=== PATIENT | male | born 1960 | race Caucasian/White ===

== ENCOUNTER 2020-10-25 08:46 | Outpatient (REF) | payer MEDICAID, SELFPAY | END 2020-10-25 08:47 | disposition home or self-care (01) | LOC: HO.LAB 08:46 | PROVIDERS: Visit Provider Internal Medicine | DX: Z20.828 Contact with and (suspected) exposure to other viral communicable diseases (principal) | CPT/HCPCS: C9803; U0003 ==

== ENCOUNTER 2021-11-29 11:14 | Outpatient (REF) | payer MEDICAID, SELFPAY ==
[2021-11-29 13:26] LABS: MANUAL DIFF FLAG NO
[2021-11-29 13:33] LABS: Basophils Percent Auto 0.4 % (0-2); Eosinophils Absolute Auto 0.4 X10*3/uL (0.0-0.4); Eosinophils Percent Auto 3.7 % (0-4); Hematocrit 41.7 % (42.0-52.0); Hemoglobin 13.5 g/dl (14.0-18.0); Imm Gran Abs Auto 0.06 X10*3/uL (0.00-0.03); Imm Gran Pct Auto 0.6 % (0.0-0.4); Lymphocytes Absolute Auto 2.8 X10*3/uL (1.2-4.9); Lymphocytes Percent Auto 29.3 % (20-40); Mean Corpuscular HGB Conc 32.4 g/dl (31.0-36.0); Mean Corpuscular Hemoglobin 29.9 pg (27.0-33.0); Mean Corpuscular Volume 92.5 fL (80.0-98.0); Mean Platelet Volume 10.3 fL (9.4-12.4); Monocytes Absolute Auto 0.9 X10*3/uL (0.1-1.2); Neutrophils Absolute Auto 5.4 x10*3/uL (2.0-8.3); Platelet Count 463 X10*3/uL (160-400); Red Blood Count 4.51 X10*6/uL (4.60-5.80); Red Cell Distribution Width 12.1 % (11.0-16.0); White Blood Count 9.5 X10*3/uL (4.8-10.8)
[2021-11-29 13:59] LABS: Alanine Aminotransferase 18 U/L (0-40); Albumin Level 3.5 g/dL (3.5-5.0); Alkaline Phosphatase 69 U/L (39-117); Anion Gap 12 (12-20); Aspartate Amino Transferase 13 U/L (5-37); Bilirubin Total 0.2 mg/dL (0.0-1.0); Blood Urea Nitrogen 11 mg/dL (9-16); Carbon Dioxide 29 mmol/L (22-29); Chloride 102 mmol/L (96-108); Cholesterol 151 mg/dL; Estimated Glomerular Filt Rate > 60; Glucose Random 85 mg/dL (60-115); HDL Cholesterol 36 mg/dL; LDL Cholesterol Calculated 87 mg/dl; Potassium 4.3 mmol/L (3.3-5.1); Sodium 139 mmol/L (135-145); Total Protein 6.6 g/dL (6.5-8.0); Triglycerides 143 mg/dL
[2021-11-29 14:18] LABS: Thyroid Stimulating Hormone 1.93 uIU/mL (0.32-4.0)
== END 2021-11-29 11:15 | disposition home or self-care (01) ==
LOC: HO.10HDL 11:14
PROVIDERS: Visit Provider Internal Medicine
DX: Z00.00 Encounter for general adult medical examination without abnormal findings (principal); E78.00 Pure hypercholesterolemia, unspecified; F32.9 Major depressive disorder, single episode, unspecified; I10 Essential (primary) hypertension; Z72.0 Tobacco use
CPT/HCPCS: 36415; 80053; 80061; 84443; 85025

== ENCOUNTER 2022-06-21 07:13 | Inpatient (IN) | payer MEDICAID, SELFPAY ==
[2022-06-21] VITALS (12 sets, daily range): BP systolic 112–149; BP diastolic 51–77; PULSE 65–99; RESP 13–24; TEMP 35.8–37.1; O2SAT 86–98; BMI 39.1
--- NOTE | 2022-06-21 | ECG_ITS ---
Test Reason : sob Blood Pressure : / mmHG Vent. Rate : 074 BPM Atrial Rate : 074 BPM P-R Int : 142 ms QRS Dur : 146 ms QT Int : 414 ms P-R-T Axes : 036 -15 012 degrees QTc Int : 459 ms Normal sinus rhythm Right bundle branch block Abnormal ECG No previous ECGs available Referred By: Generic ED Physician Electronically Signed By:Saulo Yu
--- NOTE | ~2022-06-21 | CT_ITS ---
EXAMINATION: CT ANGIOGRAM OF THE CHEST WITH CONTRAST (CT PULMONARY ANGIOGRAM FOR PE) CLINICAL INFORMATION: Reason for Exam sob/left sided chest pain COMPARISON: CXR from 06/21/2022. TECHNIQUE: Prior to contrast administration, noncontrast localization images were obtained. Subsequently, multidetector volumetric imaging was performed from the thoracic inlet to below the diaphragms following the administration of 65 mL Omnipaque 350 intravenous contrast. No contrast reaction reported. Sagittal, coronal, and MIP oblique sagittal reformatted images were obtained on the CT workstation, uploaded to PACS, and reviewed. This CT examination was performed using dose optimization techniques as appropriate, variously including the following: *Automated exposure control *Adjustment of mA and/or kV according to patient size (this includes techniques or standardized protocols for targeted exams where dose is matched to indication/reason for exam; i.e. extremities or head) *Use of iterative reconstruction technique DLP: Total exam dose-length product 358 mGy-cm FINDINGS: LUNGS AND PLEURA: Mild centrilobular and paraseptal emphysema of upper lobes. Also, there are reticular opacities of likely chronic mild fibrosis with traction bronchiectasis at the right apex. Several punctate calcified granulomas in the right upper lobe. Nonspecific 0.4 cm noncalcified nodule of the lateral right upper lobe (image 110, series 7). Small calcified nodule or lymph node along the minor fissure and 0.5 cm calcified granuloma the anterolateral left upper lobe. Other small calcified nodules are present, as well, including posteromedial left apex. No lung mass. No mucous plugging of bronchi. Peripheral opacity of what appears to represent mild atelectasis of the posterior left lower lobe. Trace left pleural effusion. QUALITY OF STUDY/CONTRAST BOLUS: The quality of the contrast bolus is borderline adequate. The main pulmonary artery has reached and attenuation of 200 Hounsfield units. CARDIOVASCULAR: The pulmonary arteries are normal in size. No evidence of embolic filling defects in the main, lobar or proximal segmental vessels. The evaluation of the peripheral arteries is partially limited by mild respiratory motion and the quality of the contrast bolus. Again, no emboli are identified. The heart size is normal. No pericardial effusion. There is mild atherosclerosis of the thoracic aorta without aneurysm or dissection. MEDIASTINUM/LOWER NECK: No mediastinal mass. The visualized inferior portion of the thyroid gland is normal. The esophagus is unremarkable. LYMPHATICS: No axillary or internal mammary lymphadenopathy. Mildly enlarged right paratracheal lymph nodes measure up to 1.2 cm short axis dimension. No subcarinal or hilar lymphadenopathy. Small calcified hilar lymph nodes from old granulomatous disease. UPPER ABDOMEN: No contrast reflux into the inferior vena cava. No acute findings in the visualized upper abdomen. Small, 0.6 cm cyst in the right lobe of the liver. There is atrophy and partial fatty replacement of the pancreas. A left renal cyst has a simple appearance but is only partially included in [id number]. No renal imaging follow-up recommended. OSSEOUS STRUCTURES: No acute or suspicious osseous abnormality. CT/CT angio chest PE protocol IMPRESSION: * The quality of the contrast bolus for the pulmonary arteries is borderline adequate. There is no CT imaging evidence of pulmonary embolism. * The opacity of the posterior left lower lobe has the appearance of atelectasis, although trace left pleural effusion is present. The possibility of an early onset pneumonia would also be considered, if in the proper clinical context. * Mild centrilobular and paraseptal emphysema. * Old granulomatous disease. Multiple small calcified pulmonary nodules are present. Also, findings include 0.4 cm noncalcified nodule of the lateral right upper lobe. Based on use of Fleischner Society guidelines, chest CT follow-up is not required in a low-risk patient and is considered optional at 12 months in a high risk patient. * Mild right paratracheal lymphadenopathy is of uncertain chronicity and significance. There are no comparison exams.
--- NOTE | ~2022-06-21 | XR_ITS ---
EXAMINATION: XR CHEST CLINICAL INFORMATION: Shortness of breath and left-sided chest pain COMPARISON: None TECHNIQUE: 2 views of the chest were obtained. FINDINGS: The heart and pulmonary vessels appear normal. No infiltrates or effusions are seen. There is a 5 mm rounded opacity seen in the left mid lung just above the left fifth anterior rib ends which may represent a small pulmonary nodule. No other lung masses are seen. XR/XR chest 2V IMPRESSION: No acute intrathoracic disease. Possible small 5 mm left upper lobe pulmonary nodule. CT is recommended for further evaluation.
[2022-06-21 08:32] LABS: MANUAL DIFF FLAG NO
[2022-06-21 08:34] LABS: Basophils Percent Auto 0.4 % (0-2); Eosinophils Absolute Auto 0.3 X10*3/uL (0.0-0.4); Eosinophils Percent Auto 3.2 % (0-4); Hematocrit 44.2 % (42.0-52.0); Hemoglobin 14.1 g/dl (14.0-18.0); Imm Gran Abs Auto 0.03 X10*3/uL (0.00-0.03); Imm Gran Pct Auto 0.4 % (0.0-0.4); Lymphocytes Absolute Auto 1.3 X10*3/uL (1.2-4.9); Lymphocytes Percent Auto 15.9 % (20-40); Mean Corpuscular HGB Conc 31.9 g/dl (31.0-36.0); Mean Corpuscular Hemoglobin 29.1 pg (27.0-33.0); Mean Corpuscular Volume 91.3 fL (80.0-98.0); Mean Platelet Volume 10.8 fL (9.4-12.4); Monocytes Absolute Auto 0.8 X10*3/uL (0.1-1.2); Monocytes Percent Auto 9.7 % (2-11); Neutrophils Absolute Auto 5.5 x10*3/uL (2.0-8.3); Neutrophils Percent Auto 70.4 % (45-73); Platelet Count 214 X10*3/uL (160-400); Red Blood Count 4.84 X10*6/uL (4.60-5.80); White Blood Count 7.9 X10*3/uL (4.8-10.8)
[2022-06-21 08:44] LABS: INTERNATIONAL NORM RATIO 0.9 (0.9-1.1); Prothrombin Time 10.7 SEC (10.0-13.1)
[2022-06-21 08:50] LABS: Alanine Aminotransferase 16 U/L (0-40); Albumin Level 3.8 g/dL (3.5-5.0); Alkaline Phosphatase 64 U/L (39-117); Anion Gap 11 (12-20); Aspartate Amino Transferase 15 U/L (5-37); Bilirubin Direct 0.3 mg/dL (0.0-0.5); Bilirubin Total 0.7 mg/dL (0.0-1.0); Blood Urea Nitrogen 14 mg/dL (9-16); Calcium 8.7 mg/dL (8.4-10.2); Carbon Dioxide 29 mmol/L (22-29); Chloride 104 mmol/L (96-108); Creatinine Clr Calc Pharmacy 122.8; Estimated Glomerular Filt Rate > 60; Glucose Random 155 mg/dL (60-115); Lipase 6 U/L (8-78); Potassium 4.5 mmol/L (3.3-5.1); Sodium 139 mmol/L (135-145); Total Protein 6.9 g/dL (6.5-8.0)
[2022-06-21 08:57] LABS: Troponin-I High Sensitivity 3.8 ng/L (<3.5-35.0)
[2022-06-21] MEDS: Magnesium Sulfate/H2O 2 GM/50 ML PIGGYBACK IV (08:59)
[2022-06-21] MEDS: methylPREDNISolone Sod Succ 125 MG/2 ML VIAL IVPUSH (08:59)
[2022-06-21 09:02] LABS: B Type Natriuretic Peptide 23 pg/mL (<100)
--- NOTE | 2022-06-21 09:07 | ED.CHESTPAIN ---
HPI - Chest Pain General Chief Complaint: Dyspnea Stated Complaint: diff breathing chest pain Time Seen by Provider: 06/21/22 08:04 Source: patient Mode of arrival: ambulatory Limitations: language barrier ( Amharic-speaking) History of Present Illness HPI narrative: 62-year-old male with a past medical history of asthma who has been intubated in the past many years ago, hyperlipidemia and hypertension presenting to the ED with complaints of left-sided chest pain that started around 06:00 when he woke up with associated shortness of breath. He reports that this pain does not radiate. He reports he has never had this pain in the past. He denies having an MS or stroke in the past. He denies being on any blood thinners. He reports that he has an albuterol updraft machine at home/ nebulizer although he did not have any albuterol although he does admit some wheezing. He denies a cough. He denies any recent falls or trauma, fevers, chills, dizziness, headaches, neck pain / stiffness, trouble swallowing or breathing, dyspnea on exertion, orthopnea, palpitations, paresthesias, cough, abdominal pain, back pain, radiation of the chest pain, lower extremity edema or calf tenderness, dysuria, recent travel or sick contacts, recent mobilization or surgery, history of cancer, history of DVT or PE, history of PVD disease that he is aware of, others with similar symptoms or any other symptoms complaints or concerns at this time. On arrival he was noted to be at 90% on room air therefore he was placed on 2-3 L of nasal can oxygen and now satting at 95-97% on room air. Reports he feels much better although still has that left-sided chest pain. MD complaint: chest pain Pertinent past history: other ( See above) Onset (ago): hour(s) ( since 06:00 this morning when he woke) Timing of current episode: constant and still present Onset: awoke with symptoms Pain location: left chest Pain radiation: none Severity: moderate Quality: tightness Relieving factors: nothing Exacerbating factors: nothing Associated symptoms: dyspnea Treatment prior to arrival: none Risk Factors Coronary artery disease risk factors: smoking history, hyperlipidemia and hypertension Thoracic aortic dissection risk factors: none Related Data Allergies Allergy/AdvReac Type Severity Reaction Status Date / Time No Known Allergies Allergy Unverified 08/18/20 15:11 Review of Systems Review of Systems: Constitutional : No Weight loss, No Fever, No Chills, No Night Sweats, No Fatigue, No Malaise ENT/Mouth : No Hearing loss, No Ear Pain, No Nasal Congestion, No Sinus Pain, No Hoarseness, No sore throat, No Rhinorrhea, No Swallowing Difficulty Eyes: No Eye Pain, No Swelling, No Redness, No Foreign Body, No Discharge, No Vision Changes Cardiovascular : + Chest Pain, + SOB, No Dyspnea on Exertion, No Orthopnea, No Edema, No Palpitations Respiratory : No Cough, No Sputum, + Wheezing, No Smoke Exposure, No Dyspnea Gastrointestinal : No Nausea, No Vomiting, No Diarrhea, No Constipation, No abdominal Pain, No Hematochezia, No Melena Genitourinary : no irregular bleeding, No Dysuria, No Urinary Frequency, No Hematuria, No Urinary Incontinence, No Urgency, No Flank Pain, No Urinary Flow Changes, No Hesitancy Musculoskeletal : No joint pain, No Myalgias, No Joint Swelling Skin : No Skin Lesions, No rash Neuro : No Weakness, No Numbness, No Paresthesias, No Loss of Consciousness, No Dizziness, No Headache Psych : No Anxiety/Panic, No Depression, No SI/HI/AH/VH, No Social Issues, Heme/Lymph: No Bruising, No Bleeding,No Lymphadenopathy Endocrine : No Polyuria, No Polydipsia, No Temperature Intolerance Yes all other systems are reviewed and are negative [facility] Past Medical History Attestation statement: The following information was validated with the patient. Source: old records reviewed and nursing notes reviewed Medical History Asthma High cholesterol HTN (hypertension) Social History Social History Alcohol intake: current Alcohol intake frequency: 3 or more drinks per day Alcohol type: beer Patient Tobacco Use Status: Current everyday Tobacco user Use of substances other than those prescribed or required for medical reasons: No Advance Directives: No Advance Directives Information Provided: Yes Physical Exam Vital Signs: Vital Signs: Last Vital Signs Temp 98.3 F 06/21/22 11:22 Pulse 99 06/21/22 11:44 Resp 20 06/21/22 11:44 BP 126/51 L 06/21/22 11:44 Pulse Ox 92 06/21/22 11:44 O2 Del Method 06/21/22 11:44 O2 Flow Rate 3 06/21/22 11:44 BMI result Body Mass Index 39.1 vital signs have been reviewed as normal and appeared to be correct. Blood pressure 149/77. Heart rate normal. Respiration rate 24. Temperature normal. Oxygen saturation 90% on 2-3L of [place] oxygen. Appearance: Alert. Oriented X3. In mild respiratory distress otherwise no other acute distress. Head: Normal external exam. Normocephalic. Atraumatic. Eyes: PERRLA. EOMI. Conjunctiva and sclera normal. Eyelids normal. ENT: EAC normal. TM's Normal. Pharynx normal. Uvula midline. Moist mucous membranes. No lesions/ulcerations or masses noted on the tongue. Normal voice. No trismus noted. No drooling noted. No muffled voice noted. Neck: Normal inspection. Neck supple. FROM. No adenopathy. Thyroid Normal. No tracheal deviation noted. No crepitus is noted. No meningeal signs. No neck mass noted. No signs of trauma noted. CVS: Normal heart rate and rhythm. Heart sound normal. Pulses normal throughout. No murmurs/rales/gallops. Respiratory: Mild respiratory distress with decreased breath sounds with expiratory wheezing throughout. No rales / rhonchi noted. Chest is nontender. No signs of trauma. No crepitus is noted. No accessory muscle usage noted. no tracheal tugging or abdominal retractions noted. Abdomen: Soft and nontender. Bowel sounds normal in all 4 quadrants. No distention noted. No organomegaly noted. No visible injury noted. Back: No CVA tenderness. Full range of motion noted. Nontender. No signs of trauma. Patient neuro intact bilaterally and distally on all 4 extremities. Patient's reflexes intact bilaterally and distally on all 4 extremities. No rashes/lesion/induration/fluctuance or signs of infection noted. Skin: Skin warm and dry. Normal skin color. Normal skin turgor. No rashes/lesions/lacerations noted. Extremities: No lower extremity edema. No calf tenderness is noted. Extremities exhibit normal range of motion and nontender. Neuro: Oriented X 3. No motor deficit. No sensory deficit. Reflexes normal. Normal steady gait. No focal neuro deficits noted. CN's II-XII intact bilaterally? Vascular: + radial pulses/+ 2 distal pedal pulses/+2 dorsalis pedis b/l. Normal cap refill. No cyanosis noted to upper extremity nails and lower extremity toes nails. Course Course Course Narrative: 9am - 62-year-old male with a past medical history of asthma who has been intubated in the past many years ago, hyperlipidemia and hypertension presenting to the ED with complaints of left-sided chest pain that started around 06:00 when he woke up with associated shortness of breath. He reports that this pain does not radiate. He reports he has never had this pain in the past. He denies having an MS or stroke in the past. He reports that he has an albuterol updraft machine at home/ nebulizer although he did not have any albuterol although he does admit some wheezing. On arrival he was noted to be at 90% on room air therefore he was placed on 2-3 L of nasal can oxygen and now satting at 95-97% on room air. Reports he feels much better although still has that left-sided chest pain. Plan: Will obtain labs, EKG, chest x-ray. Provide an hour long breathing treatment, 125 mg of IV Solu-Medrol, 2 g of magnesium in 324 mg of aspirin and re-evaluate. Reevaluation(s) Reevaluation #1: - Labs reviewed and patient's anion gap 11. Random glucose 155. Troponin 3.8 therefore will repeat repeated in 3 hours. BNP 23. Otherwise all other labs are within normal limits. Patient negative for COVID. - Chest x-ray revealed possible small 5 mm left upper lobe pulmonary nodule and they are recommending a CT for further evaluation. - Due to patient requiring nasal cannula oxygen and not having history of this and chest x-ray reporting left upper lobe pulmonary nodule will obtain CT scan with contrast for possible PE or any other acute processes and re-evaluate. Time: 10:25 Reevaluation #2: - CTA of chest for PE negative for PE revealed possible opacity in the left lower lobe to represent pneumonia versus atelectasis and he also has a left pleural effusion. He has Mild centrilobular and paraseptal emphysema and multiple pulmonary nodules an mild right paratracheal lymphadenopathy otherwise no other acute processes were noted - will obtain blood cultures/lactic acid provide a L of IV fluids and start 1 g of Rocephin for possible pneumonia although less likely. - therefore I had the PCT / tech ambulate the patient and patient's oxygen saturation dropped to 85% without any nasal cannula oxygen therefore at this time will admit patient for asthma exacerbation with bronchospasm / hypoxia with small pleural effusion possible pneumonia versus atelectasis. Patient understands agrees with this plan. Time: 12:39 [facility] - Chest Pain Medical Records Data Attestation: I reviewed the patient's medical records. Lab Data Attestation: I reviewed the patient's lab results. Result diagrams: 06/21/22 07:59 06/21/22 07:59 Labs: Lab Results 06/21/22 06/21/22 06/21/22 Range/Units 07:59 07:59 07:59 WBC 7.9 (4.8-10.8) X10*3/uL RBC 4.84 (4.60-5.80) X10*6/uL Hgb 14.1 (14.0-18.0) g/dl Hct 44.2 (42.0-52.0) % MCV 91.3 (80.0-98.0) fL MCH 29.1 (27.0-33.0) pg MCHC 31.9 (31.0-36.0) g/dl RDW 14.0 (11.0-16.0) % Plt Count 214 D (160-400) X10*3/uL MPV 10.8 (9.4-12.4) fL Immature Gran % (Auto) 0.4 (0.0-0.4) % Neut % (Auto) 70.4 (45-73) % Lymph % (Auto) 15.9 L (20-40) % [place] % (Auto) 9.7 (2-11) % Eos % (Auto) 3.2 (0-4) % Baso % (Auto) 0.4 (0-2) % Lymph # (Auto) 1.3 (1.2-4.9) X10*3/uL [place] # (Auto) 0.8 (0.1-1.2) X10*3/uL Eos # (Auto) 0.3 (0.0-0.4) X10*3/uL Baso # (Auto) 0.0 (0.0-0.2) X10*3/uL Abs Immat Gran (auto) 0.03 (0.00-0.03) X10*3/uL Absolute Neuts (auto) 5.5 (2.0-8.3) x10*3/uL Absolute Nucleated RBC 0.000 (0.0-0.012) X10*3/uL Nucleated RBC % (auto) 0.0 (0.0-0.2) /100WBC PT (10.0-13.1) SEC INR (0.9-1.1) Sodium 139 (135-145) mmol/L Potassium 4.5 (3.3-5.1) mmol/L Chloride 104 (96-108) mmol/L Carbon Dioxide 29 (22-29) mmol/L Anion Gap 11 L (12-20) BUN 14 (9-16) mg/dL Creatinine 0.75 (0.5-1.4) mg/dL Estim Creat Clear Calc 122.8 Estimated GFR > 60 Random Glucose 155 H D (60-115) mg/dL Calcium 8.7 (8.4-10.2) mg/dL Total Bilirubin 0.7 (0.0-1.0) mg/dL Direct Bilirubin 0.3 (0.0-0.5) mg/dL AST 15 (5-37) U/L ALT 16 (0-40) U/L Alkaline Phosphatase 64 (39-117) U/L Troponin I High Sens 3.8 (<3.5-35.0) ng/L B-Natriuretic Peptide (<100) pg/mL Total Protein 6.9 (6.5-8.0) g/dL Albumin 3.8 (3.5-5.0) g/dL Lipase 6 L (8-78) U/L COVID-19 ([facility]VIN) (Negative) COVID-19 Clin Com 06/21/22 06/21/22 06/21/22 Range/Units 08:29 08:29 09:18 WBC (4.8-10.8) X10*3/uL RBC (4.60-5.80) X10*6/uL Hgb (14.0-18.0) g/dl Hct (42.0-52.0) % MCV (80.0-98.0) fL MCH (27.0-33.0) pg MCHC (31.0-36.0) g/dl RDW (11.0-16.0) % Plt Count (160-400) X10*3/uL MPV (9.4-12.4) fL Immature Gran % (Auto) (0.0-0.4) % Neut % (Auto) (45-73) % Lymph % (Auto) (20-40) % [place] % (Auto) (2-11) % Eos % (Auto) (0-4) % Baso % (Auto) (0-2) % Lymph # (Auto) (1.2-4.9) X10*3/uL [place] # (Auto) (0.1-1.2) X10*3/uL Eos # (Auto) (0.0-0.4) X10*3/uL Baso # (Auto) (0.0-0.2) X10*3/uL Abs Immat Gran (auto) (0.00-0.03) X10*3/uL Absolute Neuts (auto) (2.0-8.3) x10*3/uL Absolute Nucleated RBC (0.0-0.012) X10*3/uL Nucleated RBC % (auto) (0.0-0.2) /100WBC PT 10.7 (10.0-13.1) SEC INR 0.9 (0.9-1.1) Sodium (135-145) mmol/L Potassium (3.3-5.1) mmol/L Chloride (96-108) mmol/L Carbon Dioxide (22-29) mmol/L Anion Gap (12-20) BUN (9-16) mg/dL Creatinine (0.5-1.4) mg/dL Estim Creat Clear Calc Estimated GFR Random Glucose (60-115) mg/dL Calcium (8.4-10.2) mg/dL Total Bilirubin (0.0-1.0) mg/dL Direct Bilirubin (0.0-0.5) mg/dL AST (5-37) U/L ALT (0-40) U/L Alkaline Phosphatase (39-117) U/L Troponin I High Sens (<3.5-35.0) ng/L B-Natriuretic Peptide 23 (<100) pg/mL Total Protein (6.5-8.0) g/dL Albumin (3.5-5.0) g/dL Lipase (8-78) U/L COVID-19 (KEVIN) Negative (Negative) COVID-19 Clin Com See Note 06/21/22 Range/Units 10:59 WBC (4.8-10.8) X10*3/uL RBC (4.60-5.80) X10*6/uL Hgb (14.0-18.0) g/dl Hct (42.0-52.0) % MCV (80.0-98.0) fL MCH (27.0-33.0) pg MCHC (31.0-36.0) g/dl RDW (11.0-16.0) % Plt Count (160-400) X10*3/uL MPV (9.4-12.4) fL Immature Gran % (Auto) (0.0-0.4) % Neut % (Auto) (45-73) % Lymph % (Auto) (20-40) % [place] % (Auto) (2-11) % Eos % (Auto) (0-4) % Baso % (Auto) (0-2) % Lymph # (Auto) (1.2-4.9) X10*3/uL [place] # (Auto) (0.1-1.2) X10*3/uL Eos # (Auto) (0.0-0.4) X10*3/uL Baso # (Auto) (0.0-0.2) X10*3/uL Abs Immat Gran (auto) (0.00-0.03) X10*3/uL Absolute Neuts (auto) (2.0-8.3) x10*3/uL Absolute Nucleated RBC (0.0-0.012) X10*3/uL Nucleated RBC % (auto) (0.0-0.2) /100WBC PT (10.0-13.1) SEC INR (0.9-1.1) Sodium (135-145) mmol/L Potassium (3.3-5.1) mmol/L Chloride (96-108) mmol/L Carbon Dioxide (22-29) mmol/L Anion Gap (12-20) BUN (9-16) mg/dL Creatinine (0.5-1.4) mg/dL Estim Creat Clear Calc Estimated GFR Random Glucose (60-115) mg/dL Calcium (8.4-10.2) mg/dL Total Bilirubin (0.0-1.0) mg/dL Direct Bilirubin (0.0-0.5) mg/dL AST (5-37) U/L ALT (0-40) U/L Alkaline Phosphatase (39-117) U/L Troponin I High Sens < 3.5 (<3.5-35.0) ng/L B-Natriuretic Peptide (<100) pg/mL Total Protein (6.5-8.0) g/dL Albumin (3.5-5.0) g/dL Lipase (8-78) U/L COVID-19 ([facility]) (Negative) COVID-19 Clin Com Imaging Data Chest x-ray: Attestation: I personally reviewed and interpreted this imaging study as follows: Radiologist's impression: FINDINGS: The heart and pulmonary vessels appear normal. No infiltrates or effusions are seen. There is a 5 mm rounded opacity seen in the left mid lung just above the left fifth anterior rib ends which may represent a small pulmonary nodule. No other lung masses are seen. XR/XR chest 2V IMPRESSION: No acute intrathoracic disease. Possible small 5 mm left upper lobe pulmonary nodule. CT is recommended for further evaluation. CTA of chest for PE: Attestation: I personally reviewed and interpreted this imaging study as follows: Radiologist's impression: FINDINGS: LUNGS AND PLEURA: Mild centrilobular and paraseptal emphysema of upper lobes. Also, there are reticular opacities of likely chronic mild fibrosis with traction bronchiectasis at the right apex. Several punctate calcified granulomas in the right upper lobe. Nonspecific 0.4 cm noncalcified nodule of the lateral right upper lobe (image 110, series 7). Small calcified nodule or lymph node along the minor fissure and 0.5 cm calcified granuloma the anterolateral left upper lobe. Other small calcified nodules are present, as well, including posteromedial left apex. No lung mass. No mucous plugging of bronchi. Peripheral opacity of what appears to represent mild atelectasis of the posterior left lower lobe. Trace left pleural effusion. QUALITY OF STUDY/CONTRAST BOLUS: The quality of the contrast bolus is borderline adequate. The main pulmonary artery has reached and attenuation of 200 Hounsfield units. CARDIOVASCULAR: The pulmonary arteries are normal in size. No evidence of embolic filling defects in the main, lobar or proximal segmental vessels. The evaluation of the peripheral arteries is partially limited by mild respiratory motion and the quality of the contrast bolus. Again, no emboli are identified. The heart size is normal. No pericardial effusion. There is mild atherosclerosis of the thoracic aorta without aneurysm or dissection. MEDIASTINUM/LOWER NECK: No mediastinal mass. The visualized inferior portion of the thyroid gland is normal. The esophagus is unremarkable. LYMPHATICS: No axillary or internal mammary lymphadenopathy. Mildly enlarged right paratracheal lymph nodes measure up to 1.2 cm short axis dimension. No subcarinal or hilar lymphadenopathy. Small calcified hilar lymph nodes from old granulomatous disease. UPPER ABDOMEN: No contrast reflux into the inferior vena cava. No acute findings in the visualized upper abdomen. Small, 0.6 cm cyst in the right lobe of the liver. There is atrophy and partial fatty replacement of the pancreas. A left renal cyst has a simple appearance but is only partially included in [id number]. No renal imaging follow-up recommended. OSSEOUS STRUCTURES: No acute or suspicious osseous abnormality.? CT/CT angio chest PE protocol IMPRESSION: *? The quality of the contrast bolus for the pulmonary arteries is borderline adequate. There is no CT imaging evidence of pulmonary embolism. *? The opacity of the posterior left lower lobe has the appearance of atelectasis, although trace left pleural effusion is present. The possibility of an early onset pneumonia would also be considered, if in the proper clinical context. *? Mild centrilobular and paraseptal emphysema. *? Old granulomatous disease. Multiple small calcified pulmonary nodules are present. Also, findings include 0.4 cm noncalcified nodule of the lateral right upper lobe. Based on use of Fleischner Society guidelines, chest CT follow-up is not required in a low-risk patient and is considered optional at 12 months in a high risk patient. *? Mild right paratracheal lymphadenopathy is of uncertain chronicity and significance. There are no comparison exams. ECG Data ECG #1: Attestation: I personally reviewed and interpreted this ECG as follows: ECG interpretation date: 06/21/22 ECG interpretation time: : Interpretation: Normal sinus rhythm with ventricular rate of 74 with a right bundle branch block and T-wave Inversions nonspecific no acute ischemic change are noted. no prior to compare to at this time. Critical Care Time Critical Care Time Critical Care Time: Yes Total Critical Care Time: 60 Attestation: I personally attest to this time spent taking care of the patient Discharge Plan Discharge Clinical Impression: Asthma with exacerbation, Hypoxia, Incidental pulmonary nodule, Pneumonia, Pleural effusion, Paraseptal emphysema, Paratracheal lymphadenopathy Patient Disposition: Still a Patient
[2022-06-21] MEDS: Albuterol Sulfate (0.083%) 2.5 MG/3 ML VIAL.NEB 10 MG INHALE (09:08)
[2022-06-21] MEDS: Aspirin 81 MG TAB.CHEW 324 MG PO (09:35)
[2022-06-21 09:46] LABS: COVID-19 Test Negative (Negative)
[2022-06-21] MEDS: iohexoL 350 MG/ML 100 ML INFUS..BTL IV (10:54)
[2022-06-21 11:27] LABS: Troponin-I High Sensitivity < 3.5 ng/L (<3.5-35.0)
--- NOTE | 2022-06-21 11:39 | PC.NURSE ---
pt is currently asleep but easily arousable, respirations even and unlabored ls still diminshed through after the breathing tx, denies chest pain , sating at 92-91% on 3l
--- NOTE | 2022-06-21 12:00 | PC.NURSE ---
ambulated the pt on room air with few steps pt's oxygen level dropped to 86% on room air
[2022-06-21] MEDS: cefTRIAXone sodium 1 GM in 0.9 % Sodium Chloride 50 ML IV (13:16)
--- NOTE | 2022-06-21 13:34 | PHA.MEDREC ---
Pharmacy Consult ? Medication Reconciliation Pharmacy has completed the medication reconciliation. Patient has not taken medications in a few days; states that he stopped taking atorvastatin because it made him constipated. SPOKE TO ESTEBAN BELL? ABOUT GETTING A METHADONE VERIFICATION FORM FOR PATIENT
--- NOTE | 2022-06-21 13:35 | P.HPHOSP_ITS ---
History of Present Illness Date of Service: 06/21/22 Chief Complaint: chest pain 62M presented with chest pain. Patient says he was feeling well day prior to presentation. He said on morning of admission he awoke due to left-sided severe 10/10 chest pain, nonradiating, worse on exertion, relieved by rest, lasted about 1-1/2 hours, has never had similar pain before, denies shortness of breath, denies fever, cough. He does note feeling ill 2 days prior to presentation, Though he is vague about his symptoms. in ED EKG showed rbbb, otherwise on ischemic, troponins negative, CTA was negative for PE, did have some left posterior atelectasis. he was noted to be 86% on room air. Review of Systems Review of Systems: Constitutional: Denies fever, denies Chills Eyes: denies blurry vision ENT: denies sore throat CVS:chest pain Respiratory: Denies dyspnea GI: no abdominal pain : denies dysuria MSK: denies neck pain Skin: denies rash Neuro: denies specific motor weakness Psych: denies suicidal ideation Endocrine: denies heat/cold intolerance Hematologic: denies easy bleeding Allergy: denies hives [facility] Medical History (Updated 06/21/22 @ 13:25 by Yaya Quinteros MD) Asthma COPD (chronic obstructive pulmonary disease) High cholesterol HTN (hypertension) Opiate dependence Family History (Updated 06/21/22 @ 13:25 by Yaya Quinteros MD) Father Pancreatic cancer Social History Alcohol intake: current Alcohol intake frequency: 3 or more drinks per day Alcohol type: beer Patient Tobacco Use Status: Current everyday Tobacco user Use of substances other than those prescribed or required for medical reasons: No Advance Directives: No Advance Directives Information Provided: Yes Meds Allergies Allergy/AdvReac Type Severity Reaction Status Date / Time No Known Allergies Allergy Unverified 08/18/20 15:11 Active Medications: Current Medications Acetaminophen (Acetaminophen 325 Mg Tablet) 650 mg PO Q6H PRN PRN Reason: Pain, Mild (Pain Scale 1-3) Albuterol/Ipratropium (Albuterol/Iprat 2.5/0.5mg 3 Ml Ampul.Neb) 3 ml INHALE RQ4H WHILE AWAKE TAMI Azithromycin (Azithromycin 500 Mg Tablet) 500 mg PO Q24H [facility] Enoxaparin Sodium (Enoxaparin Sodium 40 Mg/0.4 Ml Syringe) 40 mg SUBCUT Q24H [facility] Methylprednisolone Sodium Succinate (Methylprednisolone Sod Succ 40 Mg/Ml Vial) 40 mg IVPUSH Q12H [facility] Pharmacy Consult (Consult Rx Perform Med Rec) 1 each MISCELLANE ONCE PRN PRN Reason: Consult order Sodium Chloride (0.9 % Sodium Chloride Flush 3 Ml Syringe) 3 ml IVFLUSH QSHIFT [facility] Home Medications Medication Instructions Recorded Confirmed Last Taken Type atorvastatin 80 mg tablet 1 tab BEDTIME 06/21/22 06/21/22 Unknown History docusate sodium 100 mg capsule 1 cap PO BID PRN Constipation 06/21/22 06/21/22 Unknown History lisinopril 20 1 tab PO DAILY 06/21/22 06/21/22 Unknown History mg-hydrochlorothiazide 25 mg tablet methadone 10 mg/mL oral concentrate 55 mg PO DAILY 06/21/22 Unknown History Physical Exam Vital Signs and Narrative: Vital Signs: Last Vital Signs Temp 98.3 F 06/21/22 11:22 Pulse 99 06/21/22 11:44 Resp 20 06/21/22 11:44 BP 126/51 L 06/21/22 11:44 Pulse Ox 86 L 06/21/22 11:55 O2 Del Method 06/21/22 11:55 O2 Flow Rate 3 06/21/22 11:44 BMI result Body Mass Index 39.1 General: no acute distress HEENT: atraumatic Neck: normal to visual inspection CVS: S1, S2, RRR Resp: diminished with wheezing bilateral Chest: non tender GI: soft, non tender, non distended : no CVA tenderness Skin: no rashes Extremities: no edema Neuro: Oriented X3, grossly intact Psych: cooperative Results Labs CBC and Chem 7: 06/21/22 07:59 06/21/22 07:59 Labs: Laboratory Results - last 24 hr 06/21/22 06/21/22 06/21/22 07:59 07:59 07:59 MCV 91.3 MCH 29.1 MCHC 31.9 RDW 14.0 Plt Count 214 D MPV 10.8 Immature Gran % (Auto) 0.4 Neut % (Auto) 70.4 Lymph % (Auto) 15.9 L [place] % (Auto) 9.7 Eos % (Auto) 3.2 Baso % (Auto) 0.4 Lymph # (Auto) 1.3 [place] # (Auto) 0.8 Eos # (Auto) 0.3 Baso # (Auto) 0.0 Abs Immat Gran (auto) 0.03 Absolute Neuts (auto) 5.5 Absolute Nucleated RBC 0.000 Nucleated RBC % (auto) 0.0 PT INR Anion Gap 11 L Estim Creat Clear Calc 122.8 Estimated GFR > 60 Random Glucose 155 H D Calcium 8.7 Total Bilirubin 0.7 Direct Bilirubin 0.3 AST 15 ALT 16 Alkaline Phosphatase 64 Troponin I High Sens 3.8 B-Natriuretic Peptide Total Protein 6.9 Albumin 3.8 Lipase 6 L COVID-19 ([facility]) COVID-19 [employer] Com 06/21/22 06/21/22 06/21/22 08:29 08:29 09:18 MCV MCH MCHC RDW Plt Count MPV Immature Gran % (Auto) Neut % (Auto) Lymph % (Auto) [place] % (Auto) Eos % (Auto) Baso % (Auto) Lymph # (Auto) [place] # (Auto) Eos # (Auto) Baso # (Auto) Abs Immat Gran (auto) Absolute Neuts (auto) Absolute Nucleated RBC Nucleated RBC % (auto) PT 10.7 INR 0.9 Anion Gap Estim Creat Clear Calc Estimated GFR Random Glucose Calcium Total Bilirubin Direct Bilirubin AST ALT Alkaline Phosphatase Troponin I High Sens B-Natriuretic Peptide 23 Total Protein Albumin Lipase COVID-19 ([facility]) Negative COVID-19 Clin Com See Note 06/21/22 10:59 MCV MCH MCHC RDW Plt Count MPV Immature Gran % (Auto) Neut % (Auto) Lymph % (Auto) [place] % (Auto) Eos % (Auto) Baso % (Auto) Lymph # (Auto) [place] # (Auto) Eos # (Auto) Baso # (Auto) Abs Immat Gran (auto) Absolute Neuts (auto) Absolute Nucleated RBC Nucleated RBC % (auto) PT INR Anion Gap Estim Creat Clear Calc Estimated GFR Random Glucose Calcium Total Bilirubin Direct Bilirubin AST ALT Alkaline Phosphatase Troponin I High Sens < 3.5 B-Natriuretic Peptide Total Protein Albumin Lipase COVID-19 ([facility]) COVID-19 Clin Com Imaging Radiologist's Impressions: Impressions Chest X-Ray 06/21/22 08:28 IMPRESSION: No acute intrathoracic disease. Possible small 5 mm left upper lobe pulmonary nodule. CT is recommended for further evaluation. Chest CTA 06/21/22 11:02 IMPRESSION: * The quality of the contrast bolus for the pulmonary arteries is borderline adequate. There is no CT imaging evidence of pulmonary embolism. * The opacity of the posterior left lower lobe has the appearance of atelectasis, although trace left pleural effusion is present. The possibility of an early onset pneumonia would also be considered, if in the proper clinical context. * Mild centrilobular and paraseptal emphysema. * Old granulomatous disease. Multiple small calcified pulmonary nodules are present. Also, findings include 0.4 cm noncalcified nodule of the lateral right upper lobe. Based on use of Fleischner Society guidelines, chest CT follow-up is not required in a low-risk patient and is considered optional at 12 months in a high risk patient. * Mild right paratracheal lymphadenopathy is of uncertain chronicity and significance. There are no comparison exams. Assessment and Plan (1) COPD (chronic obstructive pulmonary disease): Status: Acute Plan 62M presented with sob Acute hypoxic respiratory failure secondary to COPD/ asthma with acute decompensation Solu-Medrol, bronchodilators, azithromycin chest pain troponin negative, check echo obesity weight loss recommended opiate dependence methadone hyperlipidemia statin hypertension lisinopril/hydrochlorothiazide DVT prophylaxis with Lovenox full code patient with significant hypoxia and risk factors including obesity and hypertension therefore likely require at least 2 midnights in the hospital. Quality Stroke Does the patient have a stroke diagnosis?: No VTE Prior VTE?: No VTE Risk Level:: Medical - moderate - high VTE Device Contraindication: Treatment Not Indicated VTE Drug Contraindication: N/A - Med Ordered
[2022-06-21] MEDS: Azithromycin 500 MG TABLET PO (14:46)
[2022-06-21] MEDS: Enoxaparin Sodium 40 MG/0.4 ML SYRINGE SUBCUT (14:46)
--- NOTE | 2022-06-21 15:38 | PC.NURSE ---
Sheba from case management attempted to verify the methadone dose but unfortunately they where already closed, Jorden did leave a message
--- NOTE | 2022-06-21 16:00 | CA_ITS ---
Transthoracic Echocardiogram Patient (Last, First, Middle): Hal Stein, Gender: Male Date of : 1960 Age: 62 Procedure Date: 06/21/2022 Procedure Type: Transthoracic Echocardiogram Location: ER Height: 170.18 cm Weight: 113.4 kg BSA: 2.22 m2 Heart Rate: bpm BP: 126 / 51 mmHg Regional Account Executive: WING Referring MD: Yaya Quinteros MD Symptoms: chest pain Study Quality: Technically Difficult/contrast Conclusions: - Normal left ventricular size, thickness, and systolic function. The visually estimated ejection fraction is between 65-70%. - E/E prime ratio is between 8 and 15 consistent with indeterminate filling pressures. - Mildly increased right ventricular cavity size. There is normal right ventricular systolic function. - The left atrium is likely dilated. Findings Procedure Information Contrast agent, definity, is being given per protocol without apparent complications. Left Ventricle Normal left ventricular size, thickness, and systolic function. The visually estimated ejection fraction is between 65-70%. There is no evidence of regional wall motion abnormalities. Abnormal diastolic function is noted. Spectral Doppler is indicative of an impaired relaxation filling pattern. E/E prime ratio is between 8 and 15 consistent with indeterminate filling pressures. Right Ventricle Mildly increased right ventricular cavity size. There is normal right ventricular systolic function. Atria The left atrium is likely dilated. The right atrium is normal in size. Aortic Valve Normal aortic valve structure and function. There is no aortic valve stenosis. There is no aortic valve regurgitation. Mitral Valve The mitral valve appears normal. There is no mitral valve regurgitation. There is no mitral valve stenosis. Pulmonic Valve Normal pulmonic valve structure and function. There is trace pulmonic valve regurgitation. Tricuspid Valve Normal tricuspid valve structure and function. There is trace tricuspid valve regurgitation. Normal right atrial pressure. There is no evidence of pulmonary hypertension. Great Vessels All visible segments of the aorta are normal in size. Venous The inferior vena cava is normal in size and collapses greater than 50% with inspiration. Pericardium/Pleural There is no evidence of pericardial effusion. Prior Study Comparison No prior study available for comparison. Measurements 2D Linear Measurements IVSd: 1.02 0.6-0.9/0.6-1.0 cm LVIDd: 4.77 3.9-5.3/4.2-5.9 cm LVIDd Index: 2.15 2.4-3.2/2.2-3.1 cm/m2 LVIDs: 2.90 2.0-3.6 cm LVPWd: 1.14 0.7-1.1 cm LA Diam: 4.10 2.7-3.8/3.0-4.0 cm LAIDs Index: 1.85 1.5-2.3 cm/m2 LV Mass: 233.25 67-162/88-224 g LV Mass Index: 105.07 43-95/49-115 g/m2 LVOT Diam: 2.00 3.0+(-)1.3 cm 2D Systolic Function EF 4C: 64.30 >55% EF 2C: 72.70 >55% EF BiP: 68.30 >55% Mitral Valve MV Pk E: 0.94 MV PK A: 1.06 MV Decel Time: 204.00 E/A: 0.90 E'Lateral: 8.70 E'Medial: 7.62 E/E' Med: 12.40 E/E' Lat: 10.80 PHT: 60.00 MVA PHT: 3.67 Decel [place]: 4.62 Aortic Valve AoV Pk Frankie: 1.51 AoV Mn Frankie: 1.06 AoV VTI: 0.32 AoV Pk Grad: 9.00 Aov Mn Grad: 5.00 TONY Cont.VTI: 2.56 LVOT LVOT Pk Frankie: 1.28 LVOT Mn Frankie: 0.80 LVOT VTI: 0.26 LVOT Pk Grad: 7.00 LVOT Mn Grad: 3.00 LVOT Diam: 2.00 LVOT Area: 3.14 Diastolic Function MV Pk E: 0.94 MV Pk A: 1.06 E/A: 0.90 E'Medial: 7.62 E/E' Med: 12.40 E' Laterial: 8.70 E/E' Lat: 10.80 Right Ventricle TAPSE (mm): 3.45 TVS' Frankie: 16.60 Tricuspid Valve TR Pk Frankie: 2.89 TR Pk Grad: 33.00 RA Press: 3.00 RVSP: 36.00 Great Vessels Aorta Sinus of Valsalva: 3.18 2.0-3.[address] [place]: 2.64 1.7-3.4 cm Ao Asc: 3.20 2.1-3.4 cm Updated in Other Vendor System with Status of Final Saulo Yu MD electronically signed on 06/22/2022 9:31:08 PM with status of Final
[2022-06-21] MEDS: Albuterol/Iprat 2.5/0.5MG 3 ML AMPUL.NEB INHALE (16:07)
--- NOTE | 2022-06-21 17:17 | PC.NURSE ---
report given livia beltran
[2022-06-21] MEDS: methylPREDNISolone Sod Succ 40 MG/ML VIAL IVPUSH (20:08)
[2022-06-21] MEDS: Atorvastatin Calcium 80 MG TABLET PO (20:08)
--- NOTE | 2022-06-21 21:42 | PC.NURSE ---
patient brought over from the ed to overflow bed 5, manager cardiac cath applied pt nsr 70s, vss, urinal at bedside, no c/o pain or discomfort, call schwartz within reach, will continue to monitor.
[2022-06-22] MEDS: 0.9 % Sodium Chloride Flush 3 ML SYRINGE IVFLUSH ×2 (00:15→08:16)
[2022-06-22 05:17] VITALS: BP 134/61; PULSE 55; RESP 18; TEMP 35.8; O2SAT 95
[2022-06-22 06:48] LABS: Hematocrit 43.1 % (42.0-52.0); Hemoglobin 14.1 g/dl (14.0-18.0); Mean Corpuscular HGB Conc 32.7 g/dl (31.0-36.0); Mean Corpuscular Hemoglobin 29.3 pg (27.0-33.0); Mean Corpuscular Volume 89.4 fL (80.0-98.0); Platelet Count 221 X10*3/uL (160-400); Red Blood Count 4.82 X10*6/uL (4.60-5.80); Red Cell Distribution Width 13.7 % (11.0-16.0); White Blood Count 12.5 X10*3/uL (4.8-10.8)
[2022-06-22 06:49] LABS: Anion Gap 11 (12-20); Blood Urea Nitrogen 15 mg/dL (9-16); Calcium 8.7 mg/dL (8.4-10.2); Carbon Dioxide 26 mmol/L (22-29); Chloride 104 mmol/L (96-108); Creatinine Clr Calc Pharmacy 131.5; Estimated Glomerular Filt Rate > 60; Glucose Fasting 143 mg/dL (60-99); Potassium 4.1 mmol/L (3.3-5.1); Sodium 137 mmol/L (135-145)
[2022-06-22 06:54] LABS: Troponin-I High Sensitivity < 3.5 ng/L (<3.5-35.0)
[2022-06-22 07:55] VITALS: BP 128/70; PULSE 60; RESP 18; TEMP 36.4; O2SAT 97
[2022-06-22] MEDS: lisinopriL 20 MG TABLET PO (08:15)
[2022-06-22] MEDS: methylPREDNISolone Sod Succ 40 MG/ML VIAL IVPUSH (08:15)
[2022-06-22] MEDS: hydroCHLOROthiazide 25 MG TABLET PO (08:16)
[2022-06-22 08:43] LABS: Estimated Average Glucose 114 mg/dL; Hemoglobin A1c % 5.6 %
--- NOTE | 2022-06-22 09:29 | HE.PHANOTE ---
RE: methadone, per Marleni Torres pt took Methadone 55 mg on 06/21
[2022-06-22] MEDS: methADONE HCl 20 MG/2 ML ORAL.CONC 55 MG PO (10:01)
[2022-06-22 10:36] VITALS: O2SAT 94
[2022-06-22 11:29] VITALS: BP 172/68; PULSE 70; RESP 20; TEMP 36.2; O2SAT 96
--- NOTE | 2022-06-22 12:11 | PM.DS ---
DS: Providers Provider Date of Service: 06/22/22 Date of admission: 06/21/22 13:26 Primary care physician: Nickie Bradshaw MD DS: Diagnosis Discharge Diagnosis (1) COPD (chronic obstructive pulmonary disease): Status: Acute DS: Summary Hospital Course Hospital Course: from initial hpi: Chief Complaint: chest pain 62M presented with chest pain. ? Patient says he was feeling well day prior to presentation.? He said on morning of admission he awoke due to left-sided severe 10/10 chest pain, nonradiating, worse on exertion, relieved by rest, lasted about 1-1/2 hours, has never had similar pain before, denies shortness of breath, denies fever, cough.? He does note feeling ill 2 days prior to presentation,? ? Though he is vague about his symptoms. in ED EKG showed rbbb,? otherwise on ischemic, troponins negative, CTA was negative for PE, did have some left posterior atelectasis. he was noted to be 86% on room air. hospital course: Patient was admitted for acute hypoxic respiratory failure secondary to COPD/ asthma with acute decompensation. He was given steroids, bronchodilators, azithromycin. His symptoms improved faster than expected, and was tolerating room air by the next day. He will be discharged home on 5 more days of prednisone. For his chest pain he had troponins which were negative and echo which was done in still pending should be followed up. His chest pain did not recur. For his obesity weight loss is recommended. For opiate dependence he will continue methadone. For hyperlipidemia continue statin. For hypertension continue lisinopril and hydrochlorothiazide. Time Spent with Patient Time attestation: Total time spent providing and/or coordinating discharge services: Discharge coordination time: Greater than 30 minutes Quality: Safe Use of Opioids Does Pt have an Active Cancer Diagnosis on the Problem List?: No Quality: Stroke Does the patient have a stroke diagnosis?: No Physical Exam Vital Signs: Vital Signs: Last Vital Signs Temp 97.2 F 06/22/22 11:29 Pulse 70 06/22/22 11:29 Resp 20 06/22/22 11:29 BP 172/68 H 06/22/22 11:29 Pulse Ox 96 06/22/22 11:29 O2 Del Method 06/22/22 11:29 O2 Flow Rate 3 06/22/22 07:55 BMI result Body Mass Index 39.1 General: AO X 3, no acute distress Resp: CTA bilateral, no accessory muscles used CVS: S1,S2,RRR GI: soft, non tender, non distended Neuro: motor grossly intact, alert Psych: appropriate affect, appropriate insight DS: Data Data Completed and Pending Labs on day of discharge: Laboratory Results - last 24 hr 06/21/22 06/22/22 06/22/22 13:05 06:03 06:03 WBC 12.5 H RBC 4.82 Hgb 14.1 Hct 43.1 MCV 89.4 MCH 29.3 MCHC 32.7 RDW 13.7 Plt Count 221 MPV 11.0 Absolute Nucleated RBC 0.000 Nucleated RBC % (auto) 0.0 Sodium 137 Potassium 4.1 Chloride 104 Carbon Dioxide 26 Anion Gap 11 L BUN 15 Creatinine 0.70 Estim Creat Clear Calc 131.5 Estimated GFR > 60 Fasting Glucose 143 H Estimat Average Glucose Hemoglobin A1c % Lactic Acid 2.0 Calcium 8.7 Troponin I High Sens 06/22/22 06/22/22 06:03 06:03 WBC RBC Hgb Hct MCV MCH MCHC RDW Plt Count MPV Absolute Nucleated RBC Nucleated RBC % (auto) Sodium Potassium Chloride Carbon Dioxide Anion Gap BUN Creatinine Estim Creat Clear Calc Estimated GFR Fasting Glucose Estimat Average Glucose 114 Hemoglobin A1c % 5.6 Lactic Acid Calcium Troponin I High Sens < 3.5 Discharge Plan Discharge Patient Disposition: Home, Self-Care Discharge Diagnosis: copd Referrals: Nickie Bradshaw MD [Primary Care Provider] - 1 Week Discharge Medications: New azithromycin 500 mg Tablet 500 mg PO Q24H Qty: 3 0RF prednisone 20 mg tablet 40 mg PO DAILY Qty: 10 0RF Continued atorvastatin 80 mg tablet 1 tab BEDTIME docusate sodium 100 mg capsule 1 cap PO BID PRN (Reason: Constipation) lisinopril-hydrochlorothiazide 20-25 mg tablet 1 tab PO DAILY methadone 10 mg/mL Concentrate 55 mg PO DAILY Discharge Orders: Discharge Order (Routine); Ordered 06/22/22 Ordered By: Yaya Quinteros Diet: Advance to usual diet Activity on Discharge: As tolerated Stand Alone Forms: Patient Portal Discharge page Care Plan Goals: avoid hospitalizaitons Health Concerns: copd Plan of Treatment: prednisone 5 days, follow up echo Assessment: see above
--- NOTE | 2022-06-22 12:20 | MHC.CM.PN ---
PT WILL DC HOME TODAY WITH NO SERVICES FAMILY TO TRANSPORT
== END 2022-06-22 13:53 | disposition home or self-care (01) | DRG 140 ==
LOC: HO.ED 10:29 → HO.EDOVER 13:55 → HO.IMC 06-22 04:29
PROVIDERS: Physician Assistant Medical; Admitting Provider Internal Medicine; Emergency Provider Emergency Medicine Emergency Medical Services; PCP Internal Medicine; Visit Provider Internal Medicine
DX: J44.1 Chronic obstructive pulmonary disease with (acute) exacerbation (principal); J96.01 Acute respiratory failure with hypoxia; E78.5 Hyperlipidemia, unspecified; F11.20 Opioid dependence, uncomplicated; I10 Essential (primary) hypertension; J45.901 Unspecified asthma with (acute) exacerbation; E66.9 Obesity, unspecified; Z68.39 Body mass index [BMI] 39.0-39.9, adult; F17.210 Nicotine dependence, cigarettes, uncomplicated; Z20.822 Contact with and (suspected) exposure to COVID-19; Z71.6 Tobacco abuse counseling; Z79.52 Long term (current) use of systemic steroids; Z79.899 Other long term (current) drug therapy
CPT/HCPCS: 36415; 71046; 71275; 80048; 80076; 83036; 83605; 83690; 83880; 84484; 85025; 85027; 85610; 87040; 87635; 93005; 93306; 94644; 96361; 96365; 96366; 96367; 96375; 99285; J0696; J1650; J2920; J2930; J3475; Q9957; Q9967

== ENCOUNTER 2022-10-12 06:52 | Outpatient (REF) | payer MEDICAID, SELFPAY ==
[2022-10-12 06:57] LABS: MANUAL DIFF FLAG NO
[2022-10-12 07:41] LABS: Basophils Percent Auto 0.7 % (0-2); Eosinophils Absolute Auto 0.4 X10*3/uL (0.0-0.4); Eosinophils Percent Auto 7.7 % (0-4); Imm Gran Abs Auto 0.03 X10*3/uL (0.00-0.03); Imm Gran Pct Auto 0.5 % (0.0-0.4); Lymphocytes Absolute Auto 2.2 X10*3/uL (1.2-4.9); Lymphocytes Percent Auto 39.9 % (20-40); Mean Corpuscular HGB Conc 32.6 g/dl (31.0-36.0); Mean Corpuscular Hemoglobin 28.9 pg (27.0-33.0); Mean Corpuscular Volume 88.8 fL (80.0-98.0); Mean Platelet Volume 10.8 fL (9.4-12.4); Monocytes Absolute Auto 0.5 X10*3/uL (0.1-1.2); Monocytes Percent Auto 9.3 % (2-11); Neutrophils Absolute Auto 2.3 x10*3/uL (2.0-8.3); Neutrophils Percent Auto 41.9 % (45-73); Platelet Count 223 X10*3/uL (160-400); Red Blood Count 4.84 X10*6/uL (4.60-5.80); Red Cell Distribution Width 13.1 % (11.0-16.0); White Blood Count 5.5 X10*3/uL (4.8-10.8)
[2022-10-12 07:51] LABS: Alanine Aminotransferase 18 U/L (0-40); Albumin Level 3.7 g/dL (3.5-5.0); Alkaline Phosphatase 72 U/L (39-117); Anion Gap 14 (12-20); Aspartate Amino Transferase 16 U/L (5-37); Bilirubin Total 0.5 mg/dL (0.0-1.0); Blood Urea Nitrogen 13 mg/dL (9-16); Calcium 8.9 mg/dL (8.4-10.2); Carbon Dioxide 30 mmol/L (22-29); Chloride 101 mmol/L (96-108); Cholesterol 237 mg/dL; Estimated Glomerular Filt Rate > 60; Glucose Random 98 mg/dL (60-115); HDL Cholesterol 59 mg/dL; LDL Cholesterol Calculated 152 mg/dl; Potassium 4.2 mmol/L (3.3-5.1); Sodium 141 mmol/L (135-145); Total Protein 6.9 g/dL (6.5-8.0); Triglycerides 133 mg/dL
[2022-10-12 08:14] LABS: Prostate Specific Antigen 0.48 ng/mL (<0.05-4.0); Thyroid Stimulating Hormone 1.55 uIU/mL (0.32-4.0)
== END 2022-10-12 06:53 | disposition home or self-care (01) ==
LOC: HO.LAB 06:52
PROVIDERS: PCP Internal Medicine; Visit Provider Internal Medicine
DX: Z00.00 Encounter for general adult medical examination without abnormal findings (principal); I10 Essential (primary) hypertension; E78.00 Pure hypercholesterolemia, unspecified; J43.9 Emphysema, unspecified; Z12.5 Encounter for screening for malignant neoplasm of prostate
CPT/HCPCS: 36415; 80053; 80061; 84153; 84443; 85025

== ENCOUNTER 2023-04-18 11:07 | Outpatient (REF) | payer MEDICAID, SELFPAY ==
[2023-04-18 12:18] LABS: MANUAL DIFF FLAG NO
[2023-04-18 12:27] LABS: Basophils Absolute Auto 0.1 X10*3/uL (0.0-0.2); Basophils Percent Auto 0.9 % (0-2); Eosinophils Absolute Auto 0.3 X10*3/uL (0.0-0.4); Eosinophils Percent Auto 5.5 % (0-4); Hematocrit 46.5 % (42.0-52.0); Hemoglobin 14.7 g/dl (14.0-18.0); Imm Gran Abs Auto 0.03 X10*3/uL (0.00-0.03); Imm Gran Pct Auto 0.6 % (0.0-0.4); Lymphocytes Absolute Auto 2.1 X10*3/uL (1.2-4.9); Lymphocytes Percent Auto 39.8 % (20-40); Mean Corpuscular HGB Conc 31.6 g/dl (31.0-36.0); Mean Corpuscular Hemoglobin 28.5 pg (27.0-33.0); Mean Corpuscular Volume 90.1 fL (80.0-98.0); Mean Platelet Volume 11.1 fL (9.4-12.4); Monocytes Absolute Auto 0.5 X10*3/uL (0.1-1.2); Monocytes Percent Auto 9.1 % (2-11); Neutrophils Absolute Auto 2.3 x10*3/uL (2.0-8.3); Neutrophils Percent Auto 44.1 % (45-73); Platelet Count 239 X10*3/uL (160-400); Red Blood Count 5.16 X10*6/uL (4.60-5.80); Red Cell Distribution Width 13.2 % (11.0-16.0); White Blood Count 5.3 X10*3/uL (4.8-10.8)
[2023-04-18 12:32] LABS: Estimated Average Glucose 143 mg/dL; Hemoglobin A1c % 6.6 %
[2023-04-18 12:46] LABS: Alanine Aminotransferase 22 U/L (0-40); Albumin Level 3.7 g/dL (3.5-5.0); Alkaline Phosphatase 80 U/L (39-117); Anion Gap 11 (12-20); Aspartate Amino Transferase 17 U/L (5-37); Bilirubin Total 0.5 mg/dL (0.0-1.0); Blood Urea Nitrogen 14 mg/dL (9-16); Carbon Dioxide 31 mmol/L (22-29); Chloride 103 mmol/L (96-108); Cholesterol 239 mg/dL; Estimated Glomerular Filt Rate > 60; Glucose Random 143 mg/dL (60-115); HDL Cholesterol 48 mg/dL; LDL Cholesterol Calculated 151 mg/dl; Potassium 4.4 mmol/L (3.3-5.1); Sodium 141 mmol/L (135-145); Total Protein 6.9 g/dL (6.5-8.0); Triglycerides 201 mg/dL
[2023-04-18 13:03] LABS: Thyroid Stimulating Hormone 1.49 uIU/mL (0.32-4.0)
== END 2023-04-18 11:08 | disposition home or self-care (01) ==
LOC: HO.10HDL 11:07
PROVIDERS: Visit Provider Internal Medicine
DX: E78.00 Pure hypercholesterolemia, unspecified (principal); I10 Essential (primary) hypertension; M13.0 Polyarthritis, unspecified; Z72.0 Tobacco use
CPT/HCPCS: 36415; 80053; 80061; 83036; 84443; 85025

== ENCOUNTER 2023-07-24 14:49 | Outpatient (REF) | payer MEDICAID, SELFPAY ==
--- NOTE | ~2023-07-24 | XR_ITS ---
EXAMINATION: XR KNEE, LEFT CLINICAL INFORMATION: Left knee pain COMPARISON: None available. TECHNIQUE: AP standing, lateral and patellar views of the left knee were acquired. of the left knee. FINDINGS: Medial and lateral tibiofemoral osteoarthrosis is evident, more severe in the medial compartment, where full-thickness joint space narrowing is evident. Subchondral sclerosis is also present. Mild medial patellofemoral osteoarthrosis is present. There is no significant joint effusion. XR/XR knee LT 3V IMPRESSION: 1. Moderate to advanced medial tibiofemoral, and less severe lateral tibiofemoral and medial patellofemoral osteoarthrosis.
== END 2023-07-24 14:50 | disposition home or self-care (01) ==
LOC: HO.HOSX 14:49
PROVIDERS: Visit Provider Orthopaedic Surgery
DX: M25.562 Pain in left knee (principal)
CPT/HCPCS: 73562; 99202

== ENCOUNTER 2023-07-24 14:58 | Outpatient (AMB) | payer MEDICAID, SELFPAY ==
--- NOTE | 2023-07-24 15:22 | A.OFFVIS_ITS ---
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 The patient describes his pain as sharp in nature. Most of the pain is along the medial aspect of his knee. He did injure his knee several years ago. He twisted his knee and had acute onset of pain. Since that time his symptoms have gotten worse in spite of continued non operative treatments. He has done physical therapy for 12 weeks over the last 6 months which aggravated his pain. He has also tried Tylenol and anti-inflammatory medicines which gave him minimal relief. He has had injections in the past which gave him no relief. He states that his left knee will give out several times per day. Allergies No Known Allergies Allergy (Verified 07/24/23 15:26) Medication List - Last Reconciled 07/25/23 by Jamie Guerrero MD atorvastatin 1 tab BEDTIME azithromycin 500 mg PO Q24H docusate sodium 1 cap PO BID PRN lisinopril-hydrochlorothiazide 20-25 mg 1 tab PO DAILY methadone 55 mg PO DAILY prednisone 40 mg (2 x 20 mg) PO DAILY PFSH Medical History Asthma COPD (chronic obstructive pulmonary disease) High cholesterol HTN (hypertension) Opiate dependence Family History Father Pancreatic cancer Social History Household Members: None Housing: Apartment Do you presently have visiting nurse or other home services: No Alcohol intake: current Alcohol intake frequency: 3 or more drinks per day Alcohol type: beer Patient Tobacco Use Status: Current everyday Tobacco user Tobacco use type: Cigarette Cigarette Packs Per Day: 1 Cigarettes Per Day: 20.0 Physical Exam Vital Signs: BMI result Body Mass Index 35.5 Const Other: Well-nourished well-developed very friendly female awake alert and oriented x3 in no acute distress heard Extrem Other: Bilateral lower extremity examination shows good capillary refill, no skin lesions noted, normal sensation light touch Left knee examination shows a minimal effusion, minimal crepitus with range of motion, tenderness along his medial joint line, positive João's test, no instability Results Reviewed Results Reviewed: X-rays of the patient's left knee show mild to moderate diffuse joint space narrowing most significant in the medial compartment, no acute bony abnormalities Assessment & Plan Assessment & Plan (1) Tear of medial meniscus of left knee: Code(s): S83.242A - Other tear of medial meniscus, current injury, left knee, initial encounter Plan: Mr. Emil hayden presents with progressively worsening left knee pain and mechanical symptoms most likely due to a tear of his medial meniscus. Thus, I will send the patient for an MRI of his left knee for further evaluation. I will see him back once the MRI is completed to discuss the findings and t reatment options. Feel free to call me at any time should questions regarding his orthopedic management arise. Thank you very much for asking to see this very friendly gentleman. I spent 22 minutes in reviewing the patient's records and imaging studies, seeing the patient and documenting in the medical record. Orders: Orders XR knee LT 3V 07/24/23 M25.562 - Pain in left knee MR knee LT wo con Today S83.242A - Other tear of medial meniscus, current injury, left knee, initial encounter Coding Level of Care Code New Pt Level 2 (59015) Diagnoses Tear of medial meniscus of left knee S83.242A
[2023-07-24 15:27] VITALS: BMI 35.5
== END 2023-07-25 14:55 | disposition home or self-care (01) ==
PROVIDERS: PCP Internal Medicine; Visit Provider Orthopaedic Surgery
DX: S83.242A Other tear of medial meniscus, current injury, left knee, initial encounter (principal)
CPT/HCPCS: 99202

== ENCOUNTER 2023-09-17 10:10 | Outpatient (REF) | payer MEDICAID, SELFPAY ==
--- NOTE | ~2023-09-17 | MR_ITS ---
EXAMINATION: MR KNEE WITHOUT CONTRAST, LEFT CLINICAL INFORMATION: Left knee pain x 1 month, medially. COMPARISON: None available. TECHNIQUE: MRI of the knee without contrast was performed using routine sequences on a high-field scanner. FINDINGS: MENISCI: Medial Meniscus: Complex tear consists of a dominant radial component at the meniscal body and a horizontal component at both the posterior horn and body. Meniscal body is partially extruded medially. Inner margin fraying is present at the posterior horn. Lateral Meniscus: Intact LIGAMENTS: Cruciate: Intact Collateral: Edema signal around the MCL is likely reactive to the underlying meniscal abnormality. Collateral ligaments are intact. EXTENSOR MECHANISM: Enthesopathic spurring is present at the quadriceps tendon insertion, patellar tendon origin, and patellar tendon insertion. No tears or tendinosis. ARTICULAR CARTILAGE/BONE: Patellofemoral Compartment: Moderate size marginal osteophytes at the patella and trochlea. Mild chondral thinning and surface irregularity at the trochlea. Normal trochlear morphology. Medial Compartment: Moderate nonuniform chondral thinning is present at the medial femoral condyle and medial tibial plateau with full-thickness chondral fissures at the medial tibial plateau, associated with focal subchondral edema and cortical irregularity. Moderate size marginal osteophytes. Lateral Compartment: Minimal chondral surface irregularity at the lateral tibial plateau. Small marginal osteophytes. JOINT FLUID AND BURSAE: Moderate-sized joint effusion. No Short's cyst. No loose bodies. MR/MR knee LT wo con IMPRESSION: 1. Complex tear of the medial meniscus with a dominant radial component at the meniscal body and a horizontal component at the posterior horn and body. 2. Moderate medial compartment osteoarthritis. More mild osteoarthritis in the patellofemoral and lateral compartments. 3. Moderate-sized joint effusion.
== END 2023-09-17 10:11 | disposition home or self-care (01) ==
LOC: HO.MRI 10:10
PROVIDERS: PCP Internal Medicine; Visit Provider Orthopaedic Surgery
DX: S83.242A Other tear of medial meniscus, current injury, left knee, initial encounter (principal)
CPT/HCPCS: 73721

== ENCOUNTER 2024-01-01 06:08 | Emergency (ER) | payer MEDICAID, SELFPAY ==
--- NOTE | ~2024-01-01 | XR_ITS ---
EXAMINATION: XR CHEST CLINICAL INFORMATION: Dyspnea COMPARISON: 06/21/2022 TECHNIQUE: AP portable frontal view of the chest was obtained. FINDINGS: A left upper lobe granuloma is again evident. The lungs are otherwise clear. There are no pleural effusions. The cardiomediastinal silhouette is not enlarged. XR/XR chest 1V IMPRESSION: No acute disease
[2024-01-01 06:17] VITALS: BP 145/67; PULSE 81; RESP 20; TEMP 36.9; O2SAT 90; BMI 39.9
--- NOTE | 2024-01-01 06:17 | ECG_ITS ---
Test Reason : DYSPNEA Blood Pressure : / mmHG Vent. Rate : 073 BPM Atrial Rate : 073 BPM P-R Int : 158 ms QRS Dur : 148 ms QT Int : 424 ms P-R-T Axes : 068 -30 016 degrees QTc Int : 467 ms Normal sinus rhythm Left axis deviation Right bundle branch block Abnormal ECG When compared with ECG of 21-JUN-2022 07:22, No significant change was found Referred By: Dionne Vasquez Electronically Signed By:DOE JOHNSON MD
[2024-01-01] MEDS: Albuterol Sulfate 2.5 MG, Albuterol/Iprat 2.5/0.5MG 3 ML 3 ML INHALE (06:28)
[2024-01-01 06:29] VITALS: PULSE 74; RESP 14; O2SAT 93
--- NOTE | 2024-01-01 06:34 | ED_ITS ---
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 Patient states that over the last few day or so he has had a worsening sore throat. Patient denies any dizziness, lightheadedness, abdominal pain, nausea, vomiting, fever, chills, blurry vision, double vision, loss of vision, chest pain, difficulty breathing, shortness of breath, back pain, night sweats, pain with urination, increased urinary frequency, increased urinary urgency, blood in his urine or stool, syncope or a near syncopal episode, recent trauma or falls, bowel incontinence, bladder incontinence, bowel retention, bladder retention, or any other complaints at this time. Onset (ago): day(s) Severity: mild Severity scale (1-10): 2 Relieving factors: none Exacerbating factors: none Associated symptoms: denies other symptoms Treatments prior to arrival: none Related Data Home Medications Medication Instructions Recorded Confirmed atorvastatin 80 mg tablet 1 tab BEDTIME 06/21/22 07/25/23 docusate sodium 100 mg capsule 1 cap PO BID PRN Constipation 06/21/22 07/25/23 lisinopril 20 1 tab PO DAILY 06/21/22 07/25/23 mg-hydrochlorothiazide 25 mg tablet methadone 10 mg/mL oral concentrate 55 mg PO DAILY 06/21/22 07/25/23 Previous Rx's Medication Instructions Recorded azithromycin 500 mg tablet 500 mg PO Q24H #3 tabs 06/22/22 prednisone 20 mg tablet 40 mg (2 x 20 mg) PO DAILY #10 tabs 06/22/22 prednisone 20 mg tablet 20 mg PO DAILY 12 days #26 tabs 01/01/24 Allergies Allergy/AdvReac Type Severity Reaction Status Date / Time No Known Allergies Allergy Verified 01/01/24 08:41 Review of Systems 2 Constitutional: Constitutional: Reports no additional constitutional complaints, Denies chills, Denies fever(s) and Denies night sweats Eyes: Eyes: Reports no additional eye complaints, Denies blurry vision, Denies change in vision, Denies diplopia, Denies eye discharge, Denies loss of vision and Denies eye pain ENT: Denies dizziness and Reports sore throat Cardiovascular: Cardiovascular: Reports no additional cardiovascular complaints, Denies chest pain, Denies lightheadedness, Denies Loss of Consciousness and Denies dyspnea Respiratory: Respiratory: Reports no additional respiratory complaints and Denies dyspnea Gastrointestinal: Gastrointestinal: Reports no additional gastrointestinal complaints, Denies abdominal pain, Denies melena, Denies hematochezia, Denies change in bowel habits and Denies change in stool character Genitourinary: Genitourinary: Reports no additional male genitourinary complaints, Denies hematuria, Denies oliguria, Denies difficulty urinating, Denies dysuria, Denies urinary frequency, Denies urinary hesitancy, Denies urinary incontinence and Denies urinary urgency Musculoskeletal: Musculoskeletal: Reports no additional musculoskeletal complaints, Denies numbness and Denies tingling Neurologic: Denies dizziness, Denies loss of vision, Denies numbness and Denies tingling Psychiatric: Psychiatric: Reports no additional psychiatric complaints Endocrine: Endocrine: Reports no additional endocrine complaints Hematologic/Lymphatic: Hematologic/Lymphatic: Reports no additional hematologic/lymphatic complaints Allergic/Immunologic: Allergic/Immunologic: Reports no additional allergic/immunologic complaints [facility] Past Medical History Attestation statement: The following information was validated with the patient. Source: old records reviewed and nursing notes reviewed Medical History Opiate dependence COPD (chronic obstructive pulmonary disease) High cholesterol HTN (hypertension) Asthma Family History Family History Father Pancreatic cancer Social History Social History Household Members: None Housing: Apartment Do you presently have visiting nurse or other home services: No Alcohol intake: current Alcohol intake frequency: 3 or more drinks per day Alcohol type: beer Patient Tobacco Use Status: Current everyday Tobacco user Tobacco use type: Cigarette Cigarette Packs Per Day: 1 Cigarettes Per Day: 20.0 Smoked in Last 30 Days: Yes Use of substances other than those prescribed or required for medical reasons: No Advance Directives: No Advance Directives Information Provided: Yes Physical Exam ED Vital Signs: Vital Signs - 24 hr 01/01/24 06:17 01/31/24 06:29 Temperature 98.5 F Pulse Rate 81 74 Respiratory Rate 20 14 Blood Pressure 145/67 H Pulse Oximetry 90 L Oxygen Delivery Method Room Air BMI result Body Mass Index 39.9 Const General: cooperative, no acute distress, alert and awake Nutritional Appearance: well nourished Orientation/consciousness: patient oriented x3 Limitations: no limitations HENMT Head: Yes normal to inspection and Yes atraumatic Ears: hearing grossly normal bilaterally and external ears normal General nose exam: Normal external nose present, no nasal discharge noted and no epistaxis Face and sinus: Yes normal facial exam, No abrasion and No laceration Mouth: Normal oral and palatal mucosa present, no drooling and no muffled voice Eyes General: appearance normal, both eyes and all related structures Periorbital: periorbital findings normal Eyelids: Yes eyelids normal Conjunctivae: conjunctivae normal Pupils: Equal, round and reactive pupils present EOM: EOMs intact bilaterally Neck Neck: Yes normal visual inspection, Yes full ROM and Yes no lymphadenopathy Chest Chest palpation & inspection: normal inspection of the chest Resp Effort & Inspection: normal respiratory effort and able to speak in complete sentences Auscultation: wheezes scattered wheezes GI Inspection: Yes normal to inspection Neuro General: patient oriented x3 and moves all extremities Cranial nerves: Yes Equal, round and reactive pupils present Cognition (Neuro): normal cognition Motor exam (neuro): 5/5 motor strength present throughout Sensory Exam: Normal double simultaneous stimulation for sensation Coordination: [id number] test normal Extrem General: Yes normal to inspection, Yes full ROM and Yes capillary refill normal Psych Appearance: grossly normal Mental Status: mental status grossly normal Affect: normal affect Attitude: cooperative Thought process: Normal thought process present Thought content: Normal thought content present Insight: Good insight present (Psych) Medications Administered Discontinued Medications Generic Name Dose Route Start Last Admin Trade Name Freq PRN Reason Stop Dose Admin Albuterol Sulfate 2.5 mg/ 0 mg 01/01/24 06:25 01/01/24 06:28 Albuterol/Ipratropium 3 ml INHALE 01/01/24 06:26 7.5 dose ONCE ONE Administration Methylprednisolone Sodium Succinate 60 mg 01/01/24 06:17 01/01/24 06:38 Methylprednisolone Sod Succ 125 Mg/2 Ml Vial IVPUSH 01/01/24 06:18 60 mg ONCE ONE Administration Medical Decision Making Medical Decision Making MDM Narrative: Patient is a 63 year old assigned male at with a history of asthma, COPD, HTN, and opiate use presenting to the emergency department today with a sore throat. Patient's physical exam showed scattered wheezes but was otherwise unremarkable. Patient's blood work was unremarkable. Patient's EKG was unremarkable. Patient's chest x-ray showed no acute process. I explained my physical exam findings as well as all test results to the patient. I answered all questions asked by the patient. Patient received breathing treatments and solu-medrol which he stated helped his symptoms significantly. I stressed the importance of the patient taking his medication as prescribed. I stressed the importance of the patient following up with his primary care provider. I stressed the importance of the patient returning to the emergency department immediately if his symptoms were to worsen or if he were to develop any dizziness, shortness of breath, difficulty breathing, chest pain, blurry vision, loss of vision, nausea, vomiting, abdominal pain, fever, chills, back pain, or any other complaints. Patient verbalized agreement and understanding with this treatment plan and discharge. Differential Diagnosis Differential Diagnoses: The differential diagnosis associated with the presentation includes Asthma exacerbation Pharyngitis Sore throat Strep pharyngitis COVID-19 Influenza COPD Admission/Observation Consideration of admission/observation: Escalation of care including admission/observation considered Patient would have been admitted to the hospital had his work up had any findings where hospital admission was appropriate and his clinical presentation warranted hospital admission. Lab Data [facility] Lab Attestation statement: I reviewed the patient's lab results. My interpretation of these results are in the [facility] Rationale portion of this note. 01/01/24 06:34 01/01/24 08:04 Labs: Lab Results 01/01/24 01/01/24 01/01/24 Range/Units 06:34 06:36 08:04 WBC 7.2 (4.8-10.8) X10*3/uL RBC 4.97 (4.60-5.80) X10*6/uL Hgb 14.3 (14.0-18.0) g/dl Hct 44.5 (42.0-52.0) % MCV 89.5 (80.0-98.0) fL MCH 28.8 (27.0-33.0) pg MCHC 32.1 (31.0-36.0) g/dl RDW 13.4 (11.0-16.0) % Plt Count 199 (160-400) X10*3/uL MPV 10.5 (9.4-12.4) fL Immature Gran % (Auto) 0.6 H (0.0-0.4) % Neut % (Auto) 73.0 (45-73) % Lymph % (Auto) 14.8 L (20-40) % [place] % (Auto) 7.9 (2-11) % Eos % (Auto) 3.1 (0-4) % Baso % (Auto) 0.6 (0-2) % Lymph # (Auto) 1.1 L (1.2-4.9) X10*3/uL [place] # (Auto) 0.6 (0.1-1.2) X10*3/uL Eos # (Auto) 0.2 (0.0-0.4) X10*3/uL Baso # (Auto) 0.0 (0.0-0.2) X10*3/uL Abs Immat Gran (auto) 0.04 H (0.00-0.03) X10*3/uL Absolute Neuts (auto) 5.2 (2.0-8.3) x10*3/uL Absolute Nucleated RBC 0.000 (0.0-0.012) X10*3/uL Nucleated RBC % (auto) 0.0 (0.0-0.2) /100WBC Sodium 139 (135-145) mmol/L Potassium 3.5 (3.3-5.1) mmol/L Chloride 100 (96-108) mmol/L Carbon Dioxide 29 (22-29) mmol/L Anion Gap 14 (12-20) BUN 11 (9-16) mg/dL Creatinine 0.72 (0.5-1.4) mg/dL Estim Creat Clear Calc 127.6 Estimated GFR > 60 Random Glucose 187 H (60-115) mg/dL Calcium 9.4 (8.4-10.2) mg/dL Magnesium 1.7 (1.6-2.6) mg/dL Total Bilirubin 0.4 (0.0-1.0) mg/dL Direct Bilirubin 0.1 (0.0-0.5) mg/dL AST 14 (5-37) U/L ALT 15 (0-40) U/L Alkaline Phosphatase 62 (39-117) U/L Troponin I High Sens < 2.7 (<3.5-35.0) ng/L Total Protein 7.4 (6.5-8.0) g/dL Albumin 3.7 (3.5-5.0) g/dL COVID-19 (KEVIN) Negative (Negative) COVID-19 Clin Com See Note Influenza Type A (PEPE) Negative (Negative) Influenza Type B (PEPE) Negative (Negative) Influenza A & B Note See Note S. pyogenes GrpA PEPE Negative (Negative) Independent Interpretation I performed an independent interpretation of an: EKG and Plain X-Ray Interpretation: My interpretation is in agreement with the radiologist's impression of this imaging study. - EXAMINATION: XR CHEST CLINICAL INFORMATION: Dyspnea COMPARISON: 06/21/2022 TECHNIQUE: AP portable frontal view of the chest was obtained. FINDINGS: A left upper lobe granuloma is again evident. The lungs are otherwise clear. There are no pleural effusions. The cardiomediastinal silhouette is not enlarged. XR/XR chest 1V IMPRESSION: No acute disease Dictated By: Ang Cardona MD Signed By: Electronically signed by Ang Cardona MD 01/01/24 0700 - Vent. Rate: 073 BPM Atrial Rate: 073 BPM P-R Int: 158 ms QRS Dur: 148 ms QT Int: 424 ms P-R-T Axes: 068 -30 016 degrees QTc Int: 467 ms Normal sinus rhythm Left axis deviation Right bundle branch block Abnormal ECG When compared with ECG of 21-JUN-2022 07:22, No significant change was found Electronically Signed By:JULIO C JOHNSON MD Dictated By: Julio C Johnson MD Signed By: Electronically signed by Julio C Johnson MD 01/01/24 0874 Radiology Impression Discussion of test interpretation with radiology: I have reviewed the radiologist's reading. Chronic Conditions Patient?s care impacted by: Other (asthma) Discharge Plan Discharge Clinical Impression: Asthma Patient Disposition: Home, Self-Care Instructions: Asthma (DC) Additional Instructions: Follow up with your primary care provider. Return to the emergency department immediately if your symptoms worsen or if you develop any dizziness, shortness of breath, difficulty breathing, chest pain, blurry vision, loss of vision, nausea, vomiting, abdominal pain, fever, chills, back pain, or any other complaints. Mynor un seguimiento con montelongo proveedor de atenci?n primaria. Regrese al departamento de emergencias inmediatamente si joe s?ntomas empeoran o si presenta mareos, dificultad para respirar, dificultad para respirar, dolor en el pecho, visi?n borrosa, p?rdida de la visi?n, n?useas, v?mitos, dolor abdominal, fiebre, escalofr?os, dolor de espalda o cualquier otras quejas. Prescriptions: New prednisone 20 mg tablet 20 mg PO DAILY 12 Days Qty: 26 0RF Rx Instructions: Take 3 tablets for 5 days THEN; Take 2 tablets for 4 days THEN; Take 1 tablet for 3 days No Action atorvastatin 80 mg tablet 1 tab BEDTIME docusate sodium 100 mg capsule 1 cap PO BID PRN (Reason: Constipation) lisinopril-hydrochlorothiazide 20-25 mg tablet 1 tab PO DAILY methadone 10 mg/mL Concentrate 55 mg PO DAILY azithromycin 500 mg Tablet 500 mg PO Q24H Qty: 3 0RF prednisone 20 mg tablet 40 mg PO DAILY Qty: 10 0RF Referrals: Nickie Bradshaw MD [Primary Care Provider] - Print Language: Danish
[2024-01-01] MEDS: methylPREDNISolone Sod Succ 125 MG/2 ML VIAL 60 MG IVPUSH (06:38)
--- OUTSIDE RECORDS SUMMARY | 2024-01-01 06:40 | XMS_ITS | Continuity of Care Document ---
Author Name Unknown Organization [facility] ter Address [address] [place] [id number]- Care Team Providers Care Solar Designer Name Role Phone Waldo ARIAS, Emilio Stacy Primary Care Physician En[place] [facility] [place](s): 04/14/21 - 04/14/[address] [address]- Encounter Diagnosis Shortness of breath(Final) - 04/13/21 Hypoxia(Final) - 04/13/21 Wheezing(Final) - 04/13/21 Discharge Disposition: A-D/C Home Attending Physician: Willy Christianson MD Admitting Physician: Leonid ARIAS, Venkatesh P Referring Physician: Not on Staff, Referring MD Allergies, Adverse Reactions, Alerts Substance Reaction Severity Status NKA Active Medications Advair Diskus 100 mcg-50 mcg inhalation powder 1, puffs, Inhalation, 2 times a day, 0, 0, 07/05/06 13:39:14, Print EFRAIN Number, [facility] [id number] [facility], [id number], Constant Indicator Start Date: 07/05/06 Status: Ordered albuterol 90 mcg/inh inhalation aerosol 2, puffs, Inhalation, 4 times a day, 34, Gm, 0, 0, 07/05/06 13:40:25, Print EFRAIN Number, [facility] [address], [address], Constant Indicator Start Date: 07/05/06 Status: Ordered atorvastatin 80 mg oral tablet TOME VINH TABLETA TODOS LOS D AL ACOSTARSE Start Date: 04/14/21 Status: Ordered hydrochlorothiazide-lisinopril 12.5 mg-20 mg oral tablet TOME VINH TABLETA TODOS LOS D Start Date: 04/14/21 Status: Ordered methadone 10 mg/5 mL oral solution 27.5 mL = 55 mg, By Mouth, Daily, 0 Refills, Maintenance, 04/14/21 12:41:00 EDT, Solution, Partial fill upon patient request if the prescription is for a schedule II opioid drug. Start Date: 04/14/21 Status: Ordered Methadone Liquid 55 mg, Solution, By Mouth, 04/14/21 9:00:00 EDT Start Date: 04/14/21 Stop Date: 04/14/21 Status: Completed Naphcon 0.1% Ophth See Instructions, 0, 0, 05/08/06 11:43:05, 1-2 gtts in right eye every 3 hrs as needed, Print EFRAIN Number, [address] [id number], Constant Indicator Start Date: 05/08/06 Status: Ordered Nizoral Topical 2% shampoo use, Topically, Daily, 120, mL, 3, 3, 07/29/06 10:58:15, as directed on package labeling, Print Susana, [address] [address], [phone], Constant Indicator Start Date: 07/29/06 Stop Date: 11/26/06 Status: Ordered predniSONE 20 mg oral tablet 2 tablet = 40 mg, By Mouth, Daily in AM, for 5 days, # 10 tablet, 0 Refills, Acute 04/19/21 12:40:00 EDT, 04/14/21 12:40:00 EDT, Tablet, [facility], Partial fill upon patient request ifthe prescription is for a schedule II opioid drug.,... Start Date: 04/14/21 Stop Date: 04/19/21 Status: Ordered Problem List Condition Effective Dates Status Health Status Inform ant Asthma(Confirmed) Active Hyperlipidemia(Confirmed) Active Hypertension(Confirmed) Active Tobacco use disorder(Confirmed) Active Results Orders for Microbiology Reports Name Date Blood Culture 04/13/21 Microbiology Reports TEST:Blood Culture STATUS:Unauthenticated BODY SITE: SOURCE:Blood COLLECTED DATE/TIME:04/13/21 11:49 PM Blood Culture SPECIMEN DESCRIPTION : BLOOD LEFT HAND SPECIAL REQUESTS : NONE REPORT STATUS : PRELIMINARY REPORT Radiology Reports * Exam Date Time Procedure Performing Provider Status 04/13/21 10:39 PM Chest Portable Yisel Gowdin; Aut h (Verified) Notes: (Chest Portable) Reason For Exam: Shortness of Breath RESULT: Chest Portable PROCEDURE: Chest Portable CLINICAL INDICATION: 61 years old Male with Reason: Shortness of Breath; Clinical Question(s): CHF. COMPARISON: None. FINDINGS: Portable AP erect view of the chest performed at 10:22 PM. Lines and tubes: Several EKG leads project over the chest. Lungs and pleura: Questionable patchy opacity medial RIGHT upper lobe. Lungs otherwise clear as visualized. No pleural effusions.No evidence of pneumothorax. Heart, mediastinum and medhat: Mild tortuosity and calcification of the thoracic aorta noted. No cardiomegaly or pulmonary venous hypertension. Bones and soft tissues: Mild to moderate degenerative changes thoracic spine. IMPRESSION: 1. Questionable medial RIGHT upper lobe pneumonia.. Thank you for allowing me to participate in the care of this patient. WSN: [id number] Ordering Physician: Roby Olsen Dictated By: Nick Guzman MD Dictated Date/Time: 04/13/21 11:06 p Reviewed By: Nick Guzman MD Signed By: Nick Guzman MD Signed Date/Time: 04/13/21 11:06 pm Transcribed By: AURELIANO Transcribed Date/Time: 04/13/21 11:01 pm Vital Signs Most recent to oldest [Reference Range]: 1 2 3 Height 170 cm (04/14/21 3:00 AM) Weight 85.3 kg (04/14/21 3:00 AM) Oxygen Saturation [94-100 %] 96 % (04/14/21 7:00 AM) 97 % (04/14/21 6:00 AM) 95 % (04/14/21 4:00 AM) Pulse Rate [55-90 bpm] 107 bpm *H* (04/14/21 1:32 AM) 102 bpm *H* (04/13/21 11:55 PM) 112 bpm *H* (04/13/21 10:58 PM) Blood Pressure [90-138/55-84 mm Hg] 143/70mm Hg *H* (04/14/21 7:00 AM) 119/53mm Hg (04/14/21 6:00 AM) 135/60mm Hg (04/14/21 4:00 AM) Respiratory Rate [16-30 br/min] 20 br/min (04/14/21 12:00 PM) 20 br/min (04/14/21 11:00 AM) 11 br/min *L* (04/14/21 7:00 AM) Temperature [96.8-100.4 DegF] 98.5 DegF (04/14/21 7:00 AM) 98.1 DegF (04/14/21 4:00 AM) 98.3 DegF (04/14/21 3:00 AM) Liters per Minute 7 L/min (04/14/21 6:00 AM) 7 L/min (04/14/21 4:00 AM) 7 L/min (04/14/21 3:00 AM) Mode of Delivery (Oxygen) Nasal cannula (04/14/21 7:00 AM) Other: henson (04/14/21 4:00 AM) Other: henson (04/14/21 3:00 AM) Blood pressure sites Arm, left (04/14/21 7:00 AM) Arm, left (04/14/21 4:00 AM) Arm, left (04/14/21 3:00 AM) Temperature Route Oral (04/14/21 7:00 AM) Oral (04/14/21 4:00 AM) Oral (04/14/21 3:00 AM)
[2024-01-01 06:43] LABS: MANUAL DIFF FLAG NO
[2024-01-01 06:53] LABS: IDNOW Serial# 08D9AD1C; Strep A Nucleic Acid Negative (Negative)
[2024-01-01 06:56] LABS: Basophils Percent Auto 0.6 % (0-2); Eosinophils Absolute Auto 0.2 X10*3/uL (0.0-0.4); Eosinophils Percent Auto 3.1 % (0-4); Hematocrit 44.5 % (42.0-52.0); Hemoglobin 14.3 g/dl (14.0-18.0); Imm Gran Abs Auto 0.04 X10*3/uL (0.00-0.03); Imm Gran Pct Auto 0.6 % (0.0-0.4); Lymphocytes Absolute Auto 1.1 X10*3/uL (1.2-4.9); Lymphocytes Percent Auto 14.8 % (20-40); Mean Corpuscular HGB Conc 32.1 g/dl (31.0-36.0); Mean Corpuscular Hemoglobin 28.8 pg (27.0-33.0); Mean Corpuscular Volume 89.5 fL (80.0-98.0); Mean Platelet Volume 10.5 fL (9.4-12.4); Monocytes Absolute Auto 0.6 X10*3/uL (0.1-1.2); Monocytes Percent Auto 7.9 % (2-11); Neutrophils Absolute Auto 5.2 x10*3/uL (2.0-8.3); Platelet Count 199 X10*3/uL (160-400); Red Blood Count 4.97 X10*6/uL (4.60-5.80); Red Cell Distribution Width 13.4 % (11.0-16.0); White Blood Count 7.2 X10*3/uL (4.8-10.8)
[2024-01-01 07:12] LABS: IDNOW Serial# 9DB6401D; Influenza A Negative (Negative); Influenza B2 Negative (Negative)
[2024-01-01 07:12] LABS: Troponin-I High Sensitivity < 2.7 ng/L (<3.5-35.0)
[2024-01-01 07:13] LABS: COVID-19 Test Negative (Negative); IDNOW Serial# 152EDE1D
--- NOTE | 2024-01-01 07:34 | PC.NURSE ---
Resumed care of patient, he is currently resting comfortably at this time. All needs met, awaiting bed assignment
[2024-01-01 08:23] LABS: Anion Gap 14 (12-20)
[2024-01-01 08:28] LABS: Alanine Aminotransferase 15 U/L (0-40); Albumin Level 3.7 g/dL (3.5-5.0); Alkaline Phosphatase 62 U/L (39-117); Aspartate Amino Transferase 14 U/L (5-37); Bilirubin Direct 0.1 mg/dL (0.0-0.5); Bilirubin Total 0.4 mg/dL (0.0-1.0); Blood Urea Nitrogen 11 mg/dL (9-16); Calcium 9.4 mg/dL (8.4-10.2); Carbon Dioxide 29 mmol/L (22-29); Chloride 100 mmol/L (96-108); Creatinine Clr Calc Pharmacy 127.6; Estimated Glomerular Filt Rate > 60; Glucose Random 187 mg/dL (60-115); Magnesium 1.7 mg/dL (1.6-2.6); Potassium 3.5 mmol/L (3.3-5.1); Sodium 139 mmol/L (135-145); Total Protein 7.4 g/dL (6.5-8.0)
[2024-01-01 09:17] VITALS: BP 126/64; PULSE 85; RESP 18; TEMP 37.1; O2SAT 90
== END 2024-01-01 09:19 | disposition home or self-care (01) ==
PROVIDERS: Emergency Medicine; Emergency Provider Emergency Medicine Emergency Medical Services; PCP Internal Medicine
DX: J45.909 Unspecified asthma, uncomplicated (principal); J02.9 Acute pharyngitis, unspecified; Z11.52 Encounter for screening for COVID-19; R06.00 Dyspnea, unspecified; F17.210 Nicotine dependence, cigarettes, uncomplicated
CPT/HCPCS: 71045; 80048; 80076; 83735; 84484; 85025; 87502; 87635; 87651; 93005; 94640; 96374; 99284; 99285; J2930

== ENCOUNTER → 2024-01-01 06:17 | Outpatient (BNV) | payer MEDICAID, SELFPAY | PROVIDERS: Emergency Provider Emergency Medicine Emergency Medical Services; PCP Internal Medicine; Visit Provider Internal Medicine Cardiovascular Disease | DX: R94.31 Abnormal electrocardiogram [ECG] [EKG] (principal) | CPT/HCPCS: 93010 ==

== ENCOUNTER 2024-07-10 21:37 | Emergency (ER) | payer MEDICAID, SELFPAY ==
[2024-07-10 21:38] VITALS: BP 158/73; PULSE 92; RESP 20; TEMP 36.8; O2SAT 93; BMI 33.4
== END 2024-07-11 02:49 | disposition left against medical advice (07) ==
PROVIDERS: Emergency Provider Emergency Medicine; PCP Internal Medicine
DX: M79.644 Pain in right finger(s) (principal); M79.642 Pain in left hand; Z53.21 Procedure and treatment not carried out due to patient leaving prior to being seen by health care provider
CPT/HCPCS: 99281

== ENCOUNTER 2024-11-21 09:42 | Emergency (ER) | payer MEDICAID, SELFPAY ==
--- NOTE | ~2024-11-21 | XR_ITS ---
EXAMINATION: XR CHEST CLINICAL INFORMATION: dyspnea, cough COMPARISON: Chest radiograph, 01/01/2024 TECHNIQUE: Frontal view of the chest was obtained. FINDINGS: Granuloma left mid lung field redemonstrated. Slight left basilar atelectasis. No pneumothorax. Trachea is midline. Cardiomediastinal silhouette is enlarged. No large pleural effusion. Osseous structures are intact. Soft tissues are unremarkable. XR/XR chest 1V IMPRESSION: 1. Granuloma left mid lung field redemonstrated. 2. Slight left basilar atelectasis. Electronically signed by: Trista Boyle MD 11/21/2024 10:[address] [facility]
[2024-11-21 09:48] VITALS: BP 166/88; PULSE 77; RESP 22; TEMP 36.8; O2SAT 87; BMI 33.5
[2024-11-21 10:13] LABS: MANUAL DIFF FLAG NO
[2024-11-21 10:16] VITALS: PULSE 73; RESP 26; O2SAT 93
[2024-11-21 10:16] LABS: Basophils Absolute Auto 0.1 X10*3/uL (0.0-0.2); Basophils Percent Auto 1.1 % (0-2); Eosinophils Absolute Auto 0.4 X10*3/uL (0.0-0.4); Eosinophils Percent Auto 5.8 % (0-4); Hemoglobin 15.6 g/dl (14.0-18.0); Imm Gran Abs Auto 0.02 X10*3/uL (0.00-0.03); Imm Gran Pct Auto 0.3 % (0.0-0.4); Lymphocytes Absolute Auto 1.7 X10*3/uL (1.2-4.9); Lymphocytes Percent Auto 26.1 % (20-40); Mean Corpuscular HGB Conc 33.2 g/dl (31.0-36.0); Mean Corpuscular Hemoglobin 30.2 pg (27.0-33.0); Mean Corpuscular Volume 90.9 fL (80.0-98.0); Mean Platelet Volume 10.6 fL (9.4-12.4); Monocytes Absolute Auto 0.7 X10*3/uL (0.1-1.2); Monocytes Percent Auto 10.1 % (2-11); Neutrophils Absolute Auto 3.7 x10*3/uL (2.0-8.3); Neutrophils Percent Auto 56.6 % (45-73); Platelet Count 210 X10*3/uL (160-400); Red Blood Count 5.17 X10*6/uL (4.60-5.80); Red Cell Distribution Width 12.8 % (11.0-16.0); White Blood Count 6.5 X10*3/uL (4.8-10.8)
--- NOTE | 2024-11-21 10:21 | PC.NURSE ---
patient reports two days of shortness of breath d/t painting spray. states cough is worse at night. denies chest pain. IV established, placed on cardiac catheterization technician. labs/swab obtained and sent. respiratory at bedside for updraft. 2L nasal cannula
[2024-11-21 10:22] VITALS: O2SAT 87
[2024-11-21] MEDS: Albuterol Sulfate 5 MG, Albuterol/Iprat 2.5/0.5MG 3 ML 3 ML INHALE (10:22)
--- NOTE | 2024-11-21 10:28 | ED.URI ---
HPI - URI/Sore Throat General Chief Complaint: Upper Respiratory Symptoms Stated Complaint: asthma Time Seen by Provider: 11/21/24 10:13 Source: patient Mode of arrival: ambulatory Limitations: language barrier (Turkish speaking only, [facility] generation manager used) History of Present Illness ED Provider: Dr. Luis Fernando Powers HPI Narrative: 64-year-old male with a history hypertension, hyperlipidemia, COPD who presents emergency department for evaluation of cough, sore throat and shortness of breath. States that he has a cough which is productive of thick, yellow to green sputum. He was not noticed any blood in his sputum. He states that he feels short of breath at rest and short of breath when he walks. He has been having chest pain which is worse with coughing and with breathing. Sore throat. He denied fever or chills. He was had rhinorrhea. He denied nausea, vomiting, diarrhea. Patient has not been using his inhaler or his nebulizers. He states that he was built he was being pain did and he believes that he may have inhaled some pain spray. Related Data Home Medications ?Medication ?Instructions ?Recorded ?Confirmed atorvastatin 80 mg tablet 1 tab BEDTIME 06/21/22 07/25/23 docusate sodium 100 mg capsule 1 cap PO BID PRN Constipation 06/21/22 07/25/23 lisinopril 20 1 tab PO DAILY 06/21/22 07/25/23 mg-hydrochlorothiazide 25 mg tablet methadone 10 mg/mL oral concentrate 55 mg PO DAILY 06/21/22 07/25/23 Previous Rx's ?Medication ?Instructions ?Recorded azithromycin 500 mg tablet 500 mg PO Q24H #3 tabs 06/22/22 prednisone 20 mg tablet 40 mg (2 x 20 mg) PO DAILY #10 tabs 06/22/22 prednisone 20 mg tablet 20 mg PO DAILY 12 days #26 tabs 01/01/24 amoxicillin 500 mg capsule 1,000 mg (2 x 500 mg) PO TID 5 11/21/24 days #30 caps prednisone 20 mg tablet 60 mg (3 x 20 mg) PO DAILY 5 days 11/21/24 #15 tabs Allergies Allergy/AdvReac Type Severity Reaction Status Date / Time No Known Allergies Allergy Verified 11/21/24 09:53 Review of Systems Review of Systems: Yes all other systems are reviewed and are negative [facility] Past Medical History [facility] Narrative: Social history: The patient smokes 6-7 cigarettes per day in his smoked for many years. He does drink alcohol 3 times a week. He states he drank 4 beers yesterday. Patient is a former opiate user and he states he has not used in many years and he was on methadone. Medical History Opiate dependence COPD (chronic obstructive pulmonary disease) High cholesterol HTN (hypertension) Asthma Family History Family History Father Pancreatic cancer Social History Social History Household Members: None Housing: Apartment Do you presently have visiting nurse or other home services: No Alcohol intake: current Alcohol intake frequency: 3 or more drinks per day Alcohol type: beer Patient Tobacco Use Status: Current everyday Tobacco user Tobacco use type: Cigarette Cigarette Packs Per Day: 1 Cigarettes Per Day: 20.0 Advance Directives: No Advance Directives Information Provided: No Physical Exam Vital Signs: Vital Signs: Last Vital Signs Temp 98.3 F 11/21/24 09:48 Pulse 73 11/21/24 10:16 Resp 26 H 11/21/24 10:16 BP 166/88 H 11/21/24 09:48 Pulse Ox 87 L 11/21/24 10:22 O2 Del Method Room Air 11/21/24 10:22 BMI result Body Mass Index 33.5 Vital signs revealed an elevated respiratory rate of 26 and an elevated blood pressure of 166/88. O2 saturation was 87-88% on room air. Exam: General: Awake, alert in no distress Head: Normocephalic, atraumatic EENT: PERRL, Lids normal, sclera normal, conjunctiva normal, nose normal , ears normal, throat without erythema or exudates Neck: Supple, no adenopathy Lung: Patient has diffuse wheezing and rhonchi with no rales, breath sounds were symmetric bilaterally Chest: symmetric movement, nontender Heart: regular rate and rhythm, normal S1, S2 no murmurs or rubs Abdomen: soft, non-tender, nondistended, normal bowel sounds Back: no vertebral tenderness, no CVAT Extremities: no deformities, moves all extremities symmetrically Neuro: Awake, alert, oriented, normal speech, cranial nerves intact, moves all extremities symmetrically Psych: Pleasant, cooperative Medications Administered Discontinued Medications Generic Name Dose Route Start Last Admin Trade Name Freddie PRN Reason Stop Dose Admin Albuterol Sulfate 5 mg/ 0 mg 11/21/24 10:16 11/21/24 10:22 Albuterol/Ipratropium 3 ml INHALE 11/21/24 10:17 7.5 each ONCE ONE Administration Medical Decision Making Medical Decision Making [facility] Narrative: 64-year-old male with a history hypertension, hyperlipidemia, COPD who presents emergency department for evaluation of cough productive of thick green to yellow sputum, sore throat, rhinorrhea chest pain worse with coughing, sore throat and shortness of breath times 24 hours. Physical examination did reveal an elevated blood pressure , elevated respiratory rate and O2 saturation which she was O2 saturation which was 87% on room air. Differential diagnosis: ?Includes but is not limited to COPD exacerbation, URI, pneumonia, bronchitis, strep pharyngitis, COVID-19, RSV, influenza, anemia, electrolyte abnormalities Course: 11:24 My independent interpretation of the patient's laboratory evaluation is as follows: CBC was normal. CMP revealed an elevated glucose of 141 otherwise unremarkable. COVID-19, RSV , influenza, and rapid strep were negative. Chest x-ray revealed no acute infiltrates to suggest pneumonia. Radiologist did note a granuloma in the left mid lung field which were seen previously. Patient's presentation is consistent with acute bronchitis causing a COPD exacerbation. Patient was treated with albuterol 7.5 mg and ipratropium 0.5 mg nebulizer. Patient was also given prednisone 60 mg orally. The patient will be treated for bacterial bronchitis with the amoxicillin 1000 mg 3 times a day for 5 days and prednisone 60 mg once a day for 5 days. Admission/Observation Consideration of admission/observation: Escalation of care including admission/observation considered (Yes) Lab Data [facility] Lab Attestation statement: I reviewed the patient's lab results. 11/21/24 10:08 11/21/24 10:08 Labs: Lab Results 11/21/24 Range/Units 10:08 WBC 6.5 (4.8-10.8) X10*3/uL RBC 5.17 (4.60-5.80) X10*6/uL Hgb 15.6 (14.0-18.0) g/dl Hct 47.0 (42.0-52.0) % MCV 90.9 (80.0-98.0) fL MCH 30.2 (27.0-33.0) pg MCHC 33.2 (31.0-36.0) g/dl RDW 12.8 (11.0-16.0) % Plt Count 210 (160-400) X10*3/uL MPV 10.6 (9.4-12.4) fL Immature Gran % (Auto) 0.3 (0.0-0.4) % Neut % (Auto) 56.6 (45-73) % Lymph % (Auto) 26.1 (20-40) % Millard % (Auto) 10.1 (2-11) % Eos % (Auto) 5.8 H (0-4) % Baso % (Auto) 1.1 (0-2) % Lymph # (Auto) 1.7 (1.2-4.9) X10*3/uL Millard # (Auto) 0.7 (0.1-1.2) X10*3/uL Eos # (Auto) 0.4 (0.0-0.4) X10*3/uL Baso # (Auto) 0.1 (0.0-0.2) X10*3/uL Abs Immat Gran (auto) 0.02 (0.00-0.03) X10*3/uL Absolute Neuts (auto) 3.7 (2.0-8.3) x10*3/uL Absolute Nucleated RBC 0.000 (0.0-0.012) X10*3/uL Nucleated RBC % (auto) 0.0 (0.0-0.2) /100WBC Hold Blue Top SEE NOTE Independent Interpretation I performed an independent interpretation of an: Plain X-Ray Interpretation: My interpretation patient's one-view chest x-ray is as follows: Increased interstitial markings consistent with COPD changes, no acute infiltrates Radiology Impression Discussion of test interpretation with radiology: I have reviewed the radiologist's reading. Radiologist Impression: XR chest 1V IMPRESSION: 1. Granuloma left mid lung field redemonstrated. 2. Slight left basilar atelectasis. Electronically signed by: Trista Boyle MD 11/21/2024 10:32 AM [facility] Dictated By: Trista Boyle MD Prescription Management I considered prescription management with: Antibiotic (Amoxicillin) and Other (Anti-inflammatory steroid: Prednisone) Chronic Conditions Patient?s care impacted by: Other (COPD) Discharge Plan Discharge Clinical Impression: Acute exacerbation of chronic obstructive pulmonary disease, Acute bronchitis Patient Disposition: Home, Self-Care Instructions: Acute Bronchitis (ED), COPD (Chronic Obstructive Pulmonary Disease) (ED) Additional Instructions: Your blood work was normal The x-ray of your chest did not reveal any evidence for pneumonia. Your COVID-19, RSV, influenza and rapid strep throat test were all negative. Your symptoms are consistent with bronchitis (infection of your breathing tubes). Take amoxicillin 500 mg pills, 2 pills every 6 hours (3 times a day while awake) for 5 days. Take prednisone 20 mg pills, 3 pills once a day for 5 days. While you ?are taking prednisone, do not take any NSAIDs (Motrin, Advil, ibuprofen, Aleve, naproxen). Take Tylenol (acetaminophen) 500 mg pills, 2 pills every 6 hours as needed for pain or fever. Your albuterol inhaler 2 puffs 4 times a day for the next 5 days Your oxygen level is at the lower limit of normal, you need to stop smoking otherwise you will continue to damage your lungs and eventually require to wear oxygen all of the time. Follow-up with your doctor in 2 days. Please return to the emergency department if your symptoms get worse or if you develop any symptoms that are concerning to you. Prescriptions: New amoxicillin 500 mg capsule 1,000 mg PO TID 5 Days Qty: 30 0RF prednisone 20 mg tablet 60 mg PO DAILY 5 Days Qty: 15 0RF No Action atorvastatin 80 mg tablet 1 tab BEDTIME docusate sodium 100 mg capsule 1 cap PO BID PRN (Reason: Constipation) lisinopril-hydrochlorothiazide 20-25 mg tablet 1 tab PO DAILY methadone 10 mg/mL Concentrate 55 mg PO DAILY azithromycin 500 mg Tablet 500 mg PO Q24H Qty: 3 0RF prednisone 20 mg tablet 40 mg PO DAILY Qty: 10 0RF prednisone 20 mg tablet 20 mg PO DAILY 12 Days Qty: 26 0RF Rx Instructions: Take 3 tablets for 5 days THEN; Take 2 tablets for 4 days THEN; Take 1 tablet for 3 days Print Language: Turkish
[2024-11-21] MEDS: Amoxicillin 500 MG CAPSULE 1000 MG PO (10:58)
[2024-11-21] MEDS: predniSONE 20 MG TABLET 60 MG PO (10:58)
[2024-11-21 11:02] LABS: Influenza A PCR NEGATIVE (Negative); Influenza B PCR NEGATIVE (Negative); Resp Syncy Virus RNA Qual PCR NEGATIVE (Negative); SARS COV2 PCR INHOUSE NEGATIVE (Negative)
[2024-11-21 11:04] LABS: IDNOW Serial# 58CA691E
[2024-11-21 11:05] LABS: Strep A Nucleic Acid Negative (Negative)
[2024-11-21 11:21] VITALS: BP 146/62; PULSE 96; RESP 18; TEMP 36.9; O2SAT 88
[2024-11-21 11:22] LABS: Alanine Aminotransferase 13 U/L (0-40); Albumin Level 3.8 g/dL (3.5-5.0); Alkaline Phosphatase 65 U/L (39-117); Anion Gap 11 (12-20); Aspartate Amino Transferase 18 U/L (5-37); Bilirubin Total 0.4 mg/dL (0.0-1.0); Blood Urea Nitrogen 10 mg/dL (9-16); Calcium 8.5 mg/dL (8.4-10.2); Carbon Dioxide 27 mmol/L (22-29); Chloride 106 mmol/L (96-108); Creatinine Clr Calc Pharmacy 114.4; Estimated Glomerular Filt Rate > 60; Glucose Random 141 mg/dL (60-115); Potassium 3.3 mmol/L (3.3-5.1); Sodium 141 mmol/L (135-145); Total Protein 7.4 g/dL (6.5-8.0)
--- NOTE | 2024-11-21 11:22 | PC.NURSE ---
reports improvement in breathing/cough s/p breathing treatment. medicated per the JAN. hx copd - 88% on room air. denies any respiratory distress currently.
[2024-11-21 11:53] VITALS: BP 146/62; PULSE 96; RESP 18; TEMP 36.9; O2SAT 88
== END 2024-11-21 11:58 | disposition home or self-care (01) ==
PROVIDERS: Emergency Provider Emergency Medicine Emergency Medical Services; PCP Internal Medicine
DX: J44.1 Chronic obstructive pulmonary disease with (acute) exacerbation (principal); J44.0 Chronic obstructive pulmonary disease with (acute) lower respiratory infection; J20.9 Acute bronchitis, unspecified; J02.9 Acute pharyngitis, unspecified; R05.9 Cough, unspecified; I10 Essential (primary) hypertension; E78.00 Pure hypercholesterolemia, unspecified; F11.20 Opioid dependence, uncomplicated; Z79.02 Long term (current) use of antithrombotics/antiplatelets; Z79.899 Other long term (current) drug therapy; Z03.818 Encounter for observation for suspected exposure to other biological agents ruled out
CPT/HCPCS: 0241U; 36415; 71045; 80053; 85025; 87651; 94640; 99284; 99285

== ENCOUNTER 2024-12-11 06:50 | Outpatient (REF) | payer MEDICAID, SELFPAY ==
[2024-12-11 07:02] LABS: MANUAL DIFF FLAG NO
[2024-12-11 07:15] LABS: Basophils Percent Auto 0.6 % (0-2); Eosinophils Absolute Auto 0.3 X10*3/uL (0.0-0.4); Eosinophils Percent Auto 5.9 % (0-4); Hematocrit 47.8 % (42.0-52.0); Hemoglobin 15.5 g/dl (14.0-18.0); Imm Gran Abs Auto 0.02 X10*3/uL (0.00-0.03); Imm Gran Pct Auto 0.4 % (0.0-0.4); Lymphocytes Absolute Auto 2.1 X10*3/uL (1.2-4.9); Lymphocytes Percent Auto 41.6 % (20-40); Mean Corpuscular HGB Conc 32.4 g/dl (31.0-36.0); Mean Corpuscular Hemoglobin 29.5 pg (27.0-33.0); Mean Corpuscular Volume 90.9 fL (80.0-98.0); Mean Platelet Volume 10.4 fL (9.4-12.4); Monocytes Absolute Auto 0.5 X10*3/uL (0.1-1.2); Monocytes Percent Auto 9.3 % (2-11); Neutrophils Absolute Auto 2.1 x10*3/uL (2.0-8.3); Neutrophils Percent Auto 42.2 % (45-73); Platelet Count 201 X10*3/uL (160-400); Red Blood Count 5.26 X10*6/uL (4.60-5.80); Red Cell Distribution Width 12.6 % (11.0-16.0); White Blood Count 5.1 X10*3/uL (4.8-10.8)
[2024-12-11 07:29] LABS: Estimated Average Glucose 128 mg/dL; Hemoglobin A1C 171.9436 umol/L; Hemoglobin A1c % 6.1 % (<6.0); Total Hemoglobin (HGBA1C) 4022.4335 umol/L
[2024-12-11 07:54] LABS: Alanine Aminotransferase 14 U/L (0-40); Albumin Level 3.7 g/dL (3.5-5.0); Alkaline Phosphatase 61 U/L (39-117); Anion Gap 10 (12-20); Aspartate Amino Transferase 17 U/L (5-37); Bilirubin Total 0.4 mg/dL (0.0-1.0); Blood Urea Nitrogen 12 mg/dL (9-16); Calcium 9.1 mg/dL (8.4-10.2); Carbon Dioxide 31 mmol/L (22-29); Chloride 106 mmol/L (96-108); Cholesterol 257 mg/dL (<200); Estimated Glomerular Filt Rate > 60; Glucose Random 117 mg/dL (60-115); HDL Cholesterol 64 mg/dL (>40); LDL Cholesterol Calculated 166 mg/dL (<100); Sodium 143 mmol/L (135-145); Triglycerides 136 mg/dL (<150)
[2024-12-11 08:51] LABS: Prostate Specific Antigen Scr 1.28 ng/mL (<0.05-4.0)
== END 2024-12-11 06:51 | disposition home or self-care (01) ==
LOC: HO.LAB 06:50
PROVIDERS: PCP Internal Medicine; Visit Provider Internal Medicine
DX: Z00.00 Encounter for general adult medical examination without abnormal findings (principal); E11.9 Type 2 diabetes mellitus without complications; E78.2 Mixed hyperlipidemia; Z12.5 Encounter for screening for malignant neoplasm of prostate; Z72.0 Tobacco use
CPT/HCPCS: 36415; 80053; 80061; 83036; 84153; 85025

== ENCOUNTER 2025-03-30 06:39 | Outpatient (REF) | payer MEDICAID, SELFPAY ==
--- OUTSIDE RECORDS SUMMARY | 2025-03-30 06:42 | XMS_ITS | Clinical Summary ---
Author Organization [facility] ity Address [address] [place] [address] Care Team Providers Care Catalogue And Special Products Manager Name Role Phone Unavailable Primary Care Provider Unavailabl e Social History Tobacco Use Types Packs/Day Years Used Date Smoking Tobacco: Never Assessed Sex and Gender Information Value Date Recorded Sex Assigned at Not on file Legal Sex Male 2:14 PM EST Gender Identity Not on file Sexual Orientation Not on file Plan of Treatment Health Maintenance Due Date Last Done Comments DTaP,Tdap,and Td Vaccines (1 - Tdap) 1979 Pneumococcal Vaccine: 50+ Ye ars (1 of 1 - PCV) 2010 Zoster Vaccines (1 of 2) 2010 Cholesterol Screening (Lipid Panel) 10/31/2022 Colorectal Cancer Screening: Colonoscopy 10/31/2022 Depression Screening 10/31/2022 HIV Screening 10/31/2022 Hepatitis C Screening 10/31/2022 Social Influencers of Health Screening 10/31/2022 COVID-19 Vaccine ( - 2023-2 5 season) 2024 Influenza Vaccine (Season Ended) 2025 RSV Immunization Adult Patie nts (1 - 1-dose 75+ series) 2035 HIB Vaccines Aged Out No longer eligi ble based on patient's age to complete this topic HPV Vaccines Aged Out No longer eligi ble based on patient's age to complete this topic Hepatitis A Vaccines Aged Out No long er eligible based on patient's age to complete this topic Hepatitis B Vaccines Aged Out No long er eligible based on patient's age to complete this topic IPV Vaccines Aged Out No longer eligi ble based on patient's age to complete this topic MMR Vaccines Aged Out No longer eligi ble based on patient's age to complete this topic Meningococcal ACWY Vaccine Aged Out N o longer eligible based on patient's age to complete this topic Meningococcal B Vaccine Aged Out No l onger eligible based on patient's age to complete this topic Pneumococcal Vaccine: Pediat rics (0 to 5 Years) and At-Risk Patients (6 to 64 Years) Aged Out No longer eligible b ased on patient's age to complete this topic RSV Immunization Patients Un jose guadalupe 20 months Aged Out No longer eligible b ased on patient's age to complete this topic Varicella Vaccines Aged Out No longer eligible based on patient's age to complete this topic
[2025-03-30 07:28] LABS: Estimated Average Glucose 146 mg/dL; Hemoglobin A1C 199.5805 umol/L; Hemoglobin A1c % 6.7 % (<6.0); Total Hemoglobin (HGBA1C) 4029.3862 umol/L
[2025-03-30 07:55] LABS: Alanine Aminotransferase 20 U/L (0-40); Albumin Level 3.8 g/dL (3.5-5.0); Alkaline Phosphatase 67 U/L (39-117); Anion Gap 10 (12-20); Aspartate Amino Transferase 18 U/L (5-37); Bilirubin Total 0.4 mg/dL (0.0-1.0); Blood Urea Nitrogen 13 mg/dL (9-16); Calcium 9.3 mg/dL (8.4-10.2); Carbon Dioxide 30 mmol/L (22-29); Chloride 103 mmol/L (96-108); Cholesterol 233 mg/dL (<200); Estimated Glomerular Filt Rate > 60; Glucose Random 111 mg/dL (60-115); HDL Cholesterol 55 mg/dL (>40); LDL Cholesterol Calculated 150 mg/dL (<100); Potassium 4.2 mmol/L (3.3-5.1); Sodium 139 mmol/L (135-145); Triglycerides 144 mg/dL (<150)
== END 2025-03-30 06:40 | disposition home or self-care (01) ==
LOC: HO.LAB 06:39
PROVIDERS: PCP Internal Medicine; Visit Provider Internal Medicine
DX: E11.9 Type 2 diabetes mellitus without complications (principal); E78.00 Pure hypercholesterolemia, unspecified; J45.909 Unspecified asthma, uncomplicated; Z72.0 Tobacco use
CPT/HCPCS: 36415; 80053; 80061; 83036

== ENCOUNTER 2025-04-09 01:28 | Emergency (ER) | payer MEDICAID, SELFPAY ==
--- NOTE | ~2025-04-09 | XR_ITS ---
CLINICAL HISTORY: cough 1 view chest x-ray. Comparison: CR/SR - XR CHEST 1V - 11/21/24 10:11 EST Findings: No consolidation, pneumothorax, or effusion. Old, calcified granuloma redemonstrated over the mid left lung. Heart size normal. Impression: 1. No acute cardiopulmonary process. No focal pulmonary consolidation. This document has been electronically signed by: Richard Tirado MD on 04/09/2025 02:33:25
[2025-04-09 01:31] VITALS: BP 130/74; PULSE 88; RESP 20; TEMP 36.8; O2SAT 94; BMI 36.0
[2025-04-09 01:58] VITALS: PULSE 92; O2SAT 88
[2025-04-09 02:03] LABS: Basophils Absolute Auto 0.1 X10*3/uL (0.0-0.2); Basophils Percent Auto 0.5 % (0-2); Eosinophils Absolute Auto 0.4 X10*3/uL (0.0-0.4); Eosinophils Percent Auto 3.6 % (0-4); Hematocrit 45.6 % (42.0-52.0); Hemoglobin 15.8 g/dl (14.0-18.0); Imm Gran Abs Auto 0.03 X10*3/uL (0.00-0.03); Imm Gran Pct Auto 0.3 % (0.0-0.4); Lymphocytes Absolute Auto 2.7 X10*3/uL (1.2-4.9); Lymphocytes Percent Auto 23.6 % (20-40); MANUAL DIFF FLAG NO; Mean Corpuscular HGB Conc 34.6 g/dl (31.0-36.0); Mean Corpuscular Hemoglobin 29.2 pg (27.0-33.0); Mean Corpuscular Volume 84.3 fL (80.0-98.0); Mean Platelet Volume 10.1 fL (9.4-12.4); Neutrophils Absolute Auto 7.1 x10*3/uL (2.0-8.3); Platelet Count 265 X10*3/uL (160-400); Red Blood Count 5.41 X10*6/uL (4.60-5.80); Red Cell Distribution Width 13.2 % (11.0-16.0); White Blood Count 11.2 X10*3/uL (4.8-10.8)
[2025-04-09] MEDS: Magnesium Sulfate/H2O 2 GM/50 ML PIGGYBACK IV (02:03)
[2025-04-09] MEDS: cefTRIAXone sodium 2 GM VIAL IVPUSH (02:11)
[2025-04-09] MEDS: Azithromycin 500 MG in 0.9 % Sodium Chloride 250 ML 125 MG IV (02:16)
--- OUTSIDE RECORDS SUMMARY | 2025-04-09 02:18 | XMS_ITS | Clinical Summary ---
Author Organization [facility] ity Address [address] [place] [address] Care Team Providers Care Soil Fertility Extension Specialist Name Role Phone Unavailable Primary Care Provider [...]
[2025-04-09 02:21] LABS: Alanine Aminotransferase 19 U/L (0-40); Albumin Level 4.1 g/dL (3.5-5.0); Alkaline Phosphatase 79 U/L (39-117); Anion Gap 14 (12-20); Aspartate Amino Transferase 20 U/L (5-37); Bilirubin Total 0.7 mg/dL (0.0-1.0); Blood Urea Nitrogen 14 mg/dL (9-16); Calcium 9.6 mg/dL (8.4-10.2); Carbon Dioxide 28 mmol/L (22-29); Chloride 100 mmol/L (96-108); Creatinine Clr Calc Pharmacy 117.7; Estimated Glomerular Filt Rate > 60; Glucose Random 132 mg/dL (60-115); Potassium 3.7 mmol/L (3.3-5.1); Sodium 138 mmol/L (135-145); Total Protein 7.5 g/dL (6.5-8.0)
[2025-04-09] MEDS: Albuterol Sulfate 2.5 MG, Albuterol/Iprat 2.5/0.5MG 3 ML 3 ML INHALE (02:27)
[2025-04-09 02:28] VITALS: PULSE 89; RESP 18; O2SAT 91
[2025-04-09 02:29] LABS: Lactic Acid 1.2 mmol/L (0.5-2.0)
[2025-04-09 02:53] LABS: Influenza A PCR NEGATIVE (Negative); Influenza B PCR NEGATIVE (Negative); Resp Syncy Virus RNA Qual PCR NEGATIVE (Negative); SARS COV2 PCR INHOUSE NEGATIVE (Negative)
[2025-04-09 03:00] VITALS: O2SAT 92
--- NOTE | 2025-04-09 03:14 | ED_ITS ---
HPI - General Adult General Chief complaint: Dyspnea Stated complaint: asthma Time Seen by Provider: 04/09/25 01:40 Source: patient Limitations: language barrier History of Present Illness ED Provider: Jen Smalls PA-C HPI narrative: 65-year-old male with a history of opiate dependence on methadone, COPD, ongoing tobacco abuse, asthma, hyperlipidemia and hypertension who presents with cough x1 day. Patient states his cough is productive, he is expelling white sputum. Associated nasal congestion and sore throat. Patient states he has been using his home nebulizer treatment without relief from symptoms. Denies fever or sick contacts with viral syndrome. Related Data Home Medications ?Medication ?Instructions ?Recorded ?Confirmed atorvastatin 80 mg tablet 1 tab BEDTIME 06/21/22 07/25/23 docusate sodium 100 mg capsule 1 cap PO BID PRN Constipation 06/21/22 07/25/23 lisinopril 20 1 tab PO DAILY 06/21/22 07/25/23 mg-hydrochlorothiazide 25 mg tablet methadone 10 mg/mL oral concentrate 55 mg PO DAILY 06/21/22 07/25/23 Previous Rx's ?Medication ?Instructions ?Recorded azithromycin 500 mg tablet 500 mg PO Q24H #3 tabs 06/22/22 prednisone 20 mg tablet 40 mg (2 x 20 mg) PO DAILY #10 tabs 06/22/22 prednisone 20 mg tablet 20 mg PO DAILY 12 days #26 tabs 01/01/24 amoxicillin 500 mg capsule 1,000 mg (2 x 500 mg) PO TID 5 11/21/24 days #30 caps prednisone 20 mg tablet 60 mg (3 x 20 mg) PO DAILY 5 days 11/21/24 #15 tabs doxycycline hyclate 100 mg capsule 100 mg PO BID #14 caps 04/09/25 prednisone 20 mg tablet 40 mg (2 x 20 mg) PO DAILY #8 tabs 04/09/25 Allergies Allergy/AdvReac Type Severity Reaction Status Date / Time No Known Allergies Allergy Verified 04/09/25 01:33 Review of Systems 2 Review of Systems: Yes all other systems are reviewed and are negative Constitutional: Constitutional: Denies fatigue and Denies fever(s) ENT: Reports nasal congestion, Reports post nasal drip and Reports sore throat Cardiovascular: Cardiovascular: Denies chest pain and Reports dyspnea Respiratory: Respiratory: Reports chest congestion, Reports cough, Reports dyspnea and Reports wheezing Endocrine: Endocrine: Denies fatigue Allergic/Immunologic: Allergic/Immunologic: Reports wheezing [facility] Past Medical History Attestation statement: The following information was validated with the patient. Medical History Opiate dependence COPD (chronic obstructive pulmonary disease) High cholesterol HTN (hypertension) Asthma Family History Family History Father Pancreatic cancer Social History Social History Household Members: None Housing: Apartment Do you presently have visiting nurse or other home services: No Alcohol intake: current Alcohol intake frequency: 3 or more drinks per day Alcohol type: beer Patient Tobacco Use Status: Current everyday Tobacco user Tobacco use type: Cigarette Cigarette Packs Per Day: 1 Cigarettes Per Day: 20.0 Smoked in Last 30 Days: Yes Use of substances other than those prescribed or required for medical reasons: No Advance Directives: No Advance Directives Information Provided: Yes Physical Exam ED Vital Signs: Vital Signs - 24 hr 04/09/25 01:31 04/09/25 01:58 04/09/25 02:28 Temperature 98.3 F Pulse Rate 88 92 89 Respiratory Rate 20 18 Blood Pressure 130/74 Pulse Oximetry 94 88 L Oxygen Delivery Method Room Air Room Air 04/09/25 03:00 04/09/25 03:23 Temperature Pulse Rate Respiratory Rate Blood Pressure Pulse Oximetry 92 94 Oxygen Delivery Method BMI result Body Mass Index 36.0 Const Other: Alert Orientation/consciousness: patient oriented x3 HENMT Other: Oropharynx is mildly erythematous no exudate, uvula midline no sublingual fluctuance no swelling inferior to the jawline, no trismus no drooling Resp Other: Nonlabored respirations, speaking in full sentences, no expiratory wheezing, patient is actively coughing at times, diminished at the bases posterior wright Cardio Other: Normal peripheral perfusion Skin Other: Warm dry no rash Neuro General: patient oriented x3, gait normal, no focal motor deficits and CN's II- XI intact bilaterally Psych Other: Cooperative Course Reevaluation(s) Reevaluation #1: The patient was ambulated, his oxygen on room air was mid 90s, 92-94% Time: 03:00 Medications Administered Generic Name Dose Route Start Last Admin Trade Name Freq PRN Reason Stop Dose Admin Azithromycin 500 mg/ Sodium 250 mls @ 125 mls/hr 04/09/25 02:02 04/09/25 02:16 Chloride IV 04/09/25 04:01 125 mls/hr ONCE ONE Administration Discontinued Medications Generic Name Dose Route Start Last Admin Trade Name Freq PRN Reason Stop Dose Admin Ceftriaxone Sodium 2 gm 04/09/25 02:02 04/09/25 02:11 Ceftriaxone Sodium 2 Gm Vial IVPUSH 04/09/25 02:03 2 gm ONCE ONE Administration Albuterol Sulfate 2.5 mg/ 0 mg 04/09/25 02:11 04/09/25 02:27 Albuterol/Ipratropium 3 ml INHALE 04/09/25 02:12 1 dose ONCE ONE Administration Magnesium Sulfate 2 gm in 50 mls @ 25 mls/hr 04/09/25 01:40 04/09/25 02:03 Magnesium Sulfate/H2o IV 04/09/25 03:39 25 mls/hr ONCE ONE Administration Methylprednisolone Sodium Succinate 125 mg 04/09/25 01:40 04/09/25 02:43 Methylprednisolone Sod Succ 125 Mg/2 Ml Vial IVPUSH 04/09/25 01:41 Not Given ONCE ONE Methylprednisolone Sodium Succinate 125 mg 04/09/25 02:45 04/09/25 02:43 Methylprednisolone Sod Succ 125 Mg Vial IVPUSH 04/09/25 02:46 125 mg ONCE ONE Administration Medical Decision Making Medical Decision Making MDM Narrative: 65-year-old male with a history of opiate dependence on methadone, COPD, ongoing tobacco abuse, asthma, hyperlipidemia and hypertension who presents with cough x1 day. Patient states his cough is productive, he is expelling white sputum. Associated nasal congestion and sore throat. Patient states he has been using his home nebulizer treatment without relief from symptoms. Denies fever or sick contacts with viral syndrome. Problem: COPD, asthma, tobacco abuse History: Per patient I have considered the following differential diagnoses: Asthma/COPD exacerbation, bronchitis, pneumonia, viral syndrome, strep pharyngitis, viral pharyngitis, RPA, REAL ESTATE SITE ANALYST Plan: We will be treating the patient for asthma and COPD, he has only had symptoms for a day, likely not pneumonia given he is afebrile. Screening labs are in process including a viral panel, adding on a chest x-ray. We will be giving an updraft, Solu-Medrol and magnesium. Given the patient has COPD, I will also obtain blood cultures and a lactic acid, I am starting empiric ceftriaxone and azithromycin, to add to his treatment for bronchitis. In regard to the patient's sore throat, this is pharyngitis associated with postnasal drip. There was no concerned for strep pharyngitis, there are no exam findings that are consistent with a RPA or REAL ESTATE SITE ANALYST. I have independently reviewed the following tests: Labs: Slight leukocytosis, not anemic, no electrolyte abnormality, lactic 1.2, viral panel negative Chest x-ray:Findings: No consolidation, pneumothorax, or effusion. Old, calcified granuloma redemonstrated over the mid left lung. Heart size normal. Impression: 1. No acute cardiopulmonary process. No focal pulmonary consolidation. Lab Data 04/09/25 01:52 04/09/25 01:52 Labs: Lab Results 04/09/25 04/09/25 04/09/25 Range/Units 01:52 02:03 02:07 WBC 11.2 H (4.8-10.8) X10*3/uL RBC 5.41 (4.60-5.80) X10*6/uL Hgb 15.8 (14.0-18.0) g/dl Hct 45.6 (42.0-52.0) % MCV 84.3 (80.0-98.0) fL MCH 29.2 (27.0-33.0) pg MCHC 34.6 (31.0-36.0) g/dl RDW 13.2 (11.0-16.0) % Plt Count 265 D (160-400) X10*3/uL MPV 10.1 (9.4-12.4) fL Immature Gran % (Auto) 0.3 (0.0-0.4) % Neut % (Auto) 63.0 (45-73) % Lymph % (Auto) 23.6 (20-40) % [place] % (Auto) 9.0 (2-11) % Eos % (Auto) 3.6 (0-4) % Baso % (Auto) 0.5 (0-2) % Lymph # (Auto) 2.7 (1.2-4.9) X10*3/uL [place] # (Auto) 1.0 (0.1-1.2) X10*3/uL Eos # (Auto) 0.4 (0.0-0.4) X10*3/uL Baso # (Auto) 0.1 (0.0-0.2) X10*3/uL Abs Immat Gran (auto) 0.03 (0.00-0.03) X10*3/uL Absolute Neuts (auto) 7.1 (2.0-8.3) x10*3/uL Absolute Nucleated RBC 0.000 (0.0-0.012) X10*3/uL Nucleated RBC % (auto) 0.0 (0.0-0.2) /100WBC Sodium 138 (135-145) mmol/L Potassium 3.7 (3.3-5.1) mmol/L Chloride 100 (96-108) mmol/L Carbon Dioxide 28 (22-29) mmol/L Anion Gap 14 (12-20) BUN 14 (9-16) mg/dL Creatinine 0.72 (0.5-1.4) mg/dL Estim Creat Clear Calc 117.7 Estimated GFR > 60 Random Glucose 132 H (60-115) mg/dL Lactic Acid 1.2 (0.5-2.0) mmol/L Calcium 9.6 (8.4-10.2) mg/dL Total Bilirubin 0.7 (0.0-1.0) mg/dL AST 20 (5-37) U/L ALT 19 (0-40) U/L Alkaline Phosphatase 79 (39-117) U/L Total Protein 7.5 (6.5-8.0) g/dL Albumin 4.1 (3.5-5.0) g/dL Influenza Type A (PCR) NEGATIVE (Negative) Influenza Type B (PCR) NEGATIVE (Negative) RSV RNA Qual (PCR) NEGATIVE (Negative) SARS-CoV-2 RNA (RT-PCR) NEGATIVE (Negative) Discharge Plan Discharge Clinical Impression: Bronchitis Patient Disposition: Home, Self-Care Instructions: Chronic Bronchitis (ED) Additional Instructions: All of your screening labs were normal, the chest x-ray was clear, you do not have pneumonia. We are treating you for bronchitis. See home care instructions. Use your home nebulizer treatment as directed. Use the prednisone as directed. Take the doxycycline as directed, this is an antibiotic for your bronchitis. Follow up with your primary care provider next week. Prescriptions: New doxycycline hyclate 100 mg capsule 100 mg PO BID Qty: 14 0RF prednisone 20 mg tablet 40 mg PO DAILY Qty: 8 0RF No Action atorvastatin 80 mg tablet 1 tab BEDTIME docusate sodium 100 mg capsule 1 cap PO BID PRN (Reason: Constipation) lisinopril-hydrochlorothiazide 20-25 mg tablet 1 tab PO DAILY methadone 10 mg/mL Concentrate 55 mg PO DAILY azithromycin 500 mg Tablet 500 mg PO Q24H Qty: 3 0RF prednisone 20 mg tablet 40 mg PO DAILY Qty: 10 0RF amoxicillin 500 mg capsule 1,000 mg PO TID 5 Days Qty: 30 0RF prednisone 20 mg tablet 60 mg PO DAILY 5 Days Qty: 15 0RF prednisone 20 mg tablet 20 mg PO DAILY 12 Days Qty: 26 0RF Rx Instructions: Take 3 tablets for 5 days THEN; Take 2 tablets for 4 days THEN; Take 1 tablet for 3 days Print Language: German
[2025-04-09 03:23] VITALS: O2SAT 94
--- NOTE | 2025-04-09 04:45 | PC.NURSE ---
pt states he feels so much better. states breathing is unlabored. vitals charted
[2025-04-09 05:00] VITALS: BP 128/75; PULSE 100; RESP 18; TEMP 36.9; O2SAT 93
== END 2025-04-09 05:10 | disposition home or self-care (01) ==
PROVIDERS: Physician Assistant Medical; Emergency Provider Internal Medicine; PCP Internal Medicine
DX: J40 Bronchitis, not specified as acute or chronic (principal); R05.9 Cough, unspecified; Z03.818 Encounter for observation for suspected exposure to other biological agents ruled out; I10 Essential (primary) hypertension; E78.00 Pure hypercholesterolemia, unspecified; Z79.899 Other long term (current) drug therapy; Z79.02 Long term (current) use of antithrombotics/antiplatelets
CPT/HCPCS: 0241U; 36415; 71045; 80053; 83605; 85025; 87040; 94640; 96365; 96366; 96367; 96375; 99284; 99285; J0456; J0696; J2919; J3475

== ENCOUNTER → 2025-04-09 01:40 | Outpatient (BNV) | payer MEDICAID, SELFPAY | PROVIDERS: Emergency Provider Internal Medicine; PCP Internal Medicine; Visit Provider Radiology Diagnostic Radiology | DX: R05.9 Cough, unspecified (principal) | CPT/HCPCS: 71045 ==

== ENCOUNTER 2025-08-25 13:46 | Emergency (ER) | payer SELFPAY ==
[2025-08-25] VITALS (10 sets, daily range): BP systolic 126–193; BP diastolic 58–102; PULSE 71–98; RESP 12–25; TEMP -17.7–36.2; O2SAT 87–96; BMI 31.8
--- NOTE | ~2025-08-25 | XR_ITS ---
EXAMINATION: XR CHEST CLINICAL INFORMATION: productive cough COMPARISON: April 09, 2025 TECHNIQUE: 2 views of the chest were obtained. FINDINGS: Lungs are clear. Again seen is a small calcified granuloma in the left middle third lung zone. Heart size is within normal limits. XR/XR chest 2V IMPRESSION: No acute disease. Stable x-ray. Electronically signed by: Gabo Whitley MD 08/25/2025 03:19 PM EDT
--- NOTE | 2025-08-25 14:08 | ED.GENADULT ---
HPI - General Adult General Chief complaint: Dyspnea Stated complaint: asthma, throat infection Time Seen by Provider: 08/25/25 16:01 Source: patient, RN notes reviewed, old records reviewed and language interpreter Mode of arrival: ambulatory Limitations: language barrier History of Present Illness ED Provider: Radha HPI narrative: 65-year-old male with a past medical history significant for COPD and asthma, hypertension, hyperlipidemia presents for evaluation of shortness of breath. The patient reports that he woke up this morning with itching and pain in his throat as well as shortness of breath He uses his nebulizer as needed without any improvement in his symptoms pain Denies any fevers, chills, chest pain. Denies any abdominal pain, nausea vomiting. On arrival to the ED his oxygen saturation was 87% on room air. He is not on supplemental oxygen at home Denies any leg swelling Related Data Home Medications ?Medication ?Instructions ?Recorded ?Confirmed atorvastatin 80 mg tablet 1 tab BEDTIME 06/21/22 07/25/23 docusate sodium 100 mg capsule 1 cap PO BID PRN Constipation 06/21/22 07/25/23 lisinopril 20 1 tab PO DAILY 06/21/22 07/25/23 mg-hydrochlorothiazide 25 mg tablet methadone 10 mg/mL oral concentrate 55 mg PO DAILY 06/21/22 07/25/23 ezetimibe 10 mg tablet 10 mg PO DAILY 08/25/25 rosuvastatin 40 mg tablet 40 mg PO DAILY 08/25/25 Allergies Allergy/AdvReac Type Severity Reaction Status Date / Time No Known Allergies Allergy Verified 08/25/25 14:08 Review of Systems Constitutional: Constitutional: Denies body ache(s), Denies chills, Denies fever(s), Denies frequent falls and Denies headache(s) Eyes: Eyes: Denies blurry vision ENT: Denies vertigo, Denies dizziness, Denies headache(s) and Reports sore throat Cardiovascular: Cardiovascular: Denies chest pain, Reports dyspnea and Reports dyspnea on exertion Respiratory: Respiratory: Denies change in phlegm color, Reports cough, Denies pain with cough, Reports dyspnea, Reports dyspnea on exertion and Reports wheezing Gastrointestinal: Gastrointestinal: Denies abdominal pain Musculoskeletal: Musculoskeletal: Denies back pain Integumentary/Breasts: Skin/Breast: Denies rash Neurologic: Denies vertigo, Denies dizziness, Denies frequent falls and Denies headache(s) Allergic/Immunologic: Allergic/Immunologic: Reports wheezing PMFSH Past Medical History Medical History Opiate dependence COPD (chronic obstructive pulmonary disease) High cholesterol HTN (hypertension) Asthma Family History Family History Father Pancreatic cancer Social History Social History Household Members: None Housing: Apartment Do you presently have visiting nurse or other home services: No Alcohol intake: current Alcohol intake frequency: 3 or more drinks per day Alcohol type: beer Patient Tobacco Use Status: Current everyday Tobacco user Tobacco use type: Cigarette Cigarette Packs Per Day: 1 Cigarettes Per Day: 20.0 Smoked in Last 30 Days: No Use of substances other than those prescribed or required for medical reasons: No Advance Directives: No Advance Directives Information Provided: Yes Do you have a plan to hurt others: No Plan Physical Exam ED Vital Signs: Vital Signs - 24 hr 08/25/25 14:06 08/25/25 14:22 08/25/25 14:39 Temperature 97.1 F Pulse Rate 98 98 91 Respiratory Rate 25 H 25 H 21 H Blood Pressure 193/102 H 149/67 H Pulse Oximetry 87 L 96 Oxygen Delivery Method Room Air Room Air Oxygen Flow Rate 08/25/25 16:20 08/25/25 16:28 08/25/25 16:48 Temperature Pulse Rate 84 Respiratory Rate 18 Blood Pressure 126/60 Pulse Oximetry 94 96 88 L Oxygen Delivery Method Nasal Cannula Nasal Cannula Room Air Oxygen Flow Rate 4 2 08/25/25 16:48 Temperature Pulse Rate Respiratory Rate Blood Pressure Pulse Oximetry 91 L Oxygen Delivery Method Nasal Cannula Oxygen Flow Rate 1 BMI result Body Mass Index 31.8 Const General: healthy appearing, comfortable, no acute distress, alert and awake Nutritional Appearance: well nourished Orientation/consciousness: patient oriented x3 HENMT Other: Faint retropharyngeal erythema without exudates or edema. Head: Yes normocephalic and Yes atraumatic Eyes Eyelids: Yes eyelids normal Conjunctivae: conjunctivae normal Sclerae: sclerae normal Corneas: corneas normal Pupils: Equal, round and reactive pupils present EOM: EOMs intact bilaterally Neck Neck: Yes full ROM Resp Effort & Inspection: normal respiratory effort, able to speak in complete sentences and not labored Auscultation: wheezes (Mild expiratory wheeze throughout) GI Inspection: No distended Palpation (GI): Soft to palpation, not firm, nontender, no guarding and not rigid Skin General skin exam: elasticity normal Neuro General: patient oriented x3 Cranial nerves: Yes Equal, round and reactive pupils present and Yes Bilaterally intact EOM present Cognition (Neuro): normal cognition Extrem Other: Moving all extremities well without any obvious deformities Course Course Course Narrative: This is a rapid medical exam performed by Anthony Yap NP: Additional HPI, ROS, PE not included below will be deferred to primary provider. Patient is a 65y/o M with history of asthma presenting with cough and dyspnea since this morning. O2 87-88% on room air in triage. public relations writer notified. Plan: bronch protocol, viral swabs, cxr Reevaluation(s) Reevaluation #1: The patient was to be admitted and when the admitting provider was evaluating him the patient states they no longer wishes to stay and he wants to go home. He states that he has brown to take care of and he lives alone. I use the hourly sign language interpreter again to discuss with him and he reports that despite his oxygen being below 90% he reports feeling better and wants to leave against medical advice. I will discharge him with prednisone and azithromycin against medical advice Time: 17:54 Medications Administered Discontinued Medications Generic Name Dose Route Start Last Admin Trade Name Freq PRN Reason Stop Dose Admin Albuterol Sulfate 5 mg/ 0 mg 08/25/25 14:17 08/25/25 14:22 Albuterol/Ipratropium 3 ml INHALE 08/25/25 14:18 1 each ONCE ONE Administration Magnesium Sulfate/Dextrose 1 gm in 100 mls @ 300 mls/hr 08/25/25 16:48 08/25/25 17:25 Magnesium Sulfate/D5w IV 08/25/25 17:07 Infused ONCE ONE Infusion Prednisone 60 mg 08/25/25 14:09 08/25/25 14:42 Prednisone 20 Mg Tablet PO 08/25/25 14:10 60 mg ONCE ONE Administration Medical Decision Making Medical Decision Making MDM Narrative: 65-year-old male presents for evaluation of shortness of breath and wheezing. Has a history of asthma and COPD, he is not on supplemental oxygen at home. He was quite wheezy on exam, he is 87% oxygen saturation on room air. No fevers or chills, chest x-ray is clear without pneumonia. This is likely an asthma exacerbation. He was given prednisone 60 mg p.o., nebulizer treatment already dose of magnesium. Blood cultures were ordered dental will on lactate, lactate is within normal limits, the patient does not meet sepsis criteria. We do not see any indication for antibiotics at this time. However after treatment the patient was 88% on room air at rest without exertion. We will discuss with the hospitalist for admission due to hypoxia secondary to asthma exacerbation Differential Diagnosis Differential Diagnoses: The differential diagnosis associated with the presentation includes Acute asthma exacerbation Hypoxia Pneumonia Bronchitis Admission/Observation Consideration of admission/observation: Escalation of care including admission/observation considered Lab Data MDM Lab Attestation statement: I reviewed the patient's lab results. No leukocytosis or anemia. Normal platelet count. No significant electrolyte abnormalities warranting imaging. CO2 is slightly elevated at 30 likely due to history of COPD. 08/25/25 14:30 08/25/25 14:30 Labs: Lab Results 08/25/25 08/25/25 08/25/25 Range/Units 14:30 14:40 16:50 WBC 7.6 (4.8-10.8) X10*3/uL RBC 5.40 (4.60-5.80) X10*6/uL Hgb 16.1 (14.0-18.0) g/dl Hct 47.8 (42.0-52.0) % MCV 88.5 (80.0-98.0) fL MCH 29.8 (27.0-33.0) pg MCHC 33.7 (31.0-36.0) g/dl RDW 13.4 (11.0-16.0) % Plt Count 268 (160-400) X10*3/uL MPV 10.3 (9.4-12.4) fL Immature Gran % (Auto) 0.5 H (0.0-0.4) % Neut % (Auto) 55.5 (45-73) % Lymph % (Auto) 32.1 (20-40) % [place] % (Auto) 7.4 (2-11) % Eos % (Auto) 3.7 (0-4) % Baso % (Auto) 0.8 (0-2) % Lymph # (Auto) 2.4 (1.2-4.9) X10*3/uL [place] # (Auto) 0.6 (0.1-1.2) X10*3/uL Eos # (Auto) 0.3 (0.0-0.4) X10*3/uL Baso # (Auto) 0.1 (0.0-0.2) X10*3/uL Abs Immat Gran (auto) 0.04 H (0.00-0.03) X10*3/uL Absolute Neuts (auto) 4.2 (2.0-8.3) x10*3/uL Absolute Nucleated RBC 0.000 (0.0-0.012) X10*3/uL Nucleated RBC % (auto) 0.0 (0.0-0.2) /100WBC VBG pH 7.32 (7.32-7.43) VBG pCO2 56 mmHg VBG pO2 78 mmHg VBG HCO3 29 H (22-26) mmol/L VBG O2 Saturation 94.0 % VBG Base Excess 2.2 mmol/L Sodium 143 (135-145) mmol/L Potassium 3.7 (3.3-5.1) mmol/L Chloride 106 (96-108) mmol/L Carbon Dioxide 30 H (22-29) mmol/L Anion Gap 11 L (12-20) BUN 9 (9-16) mg/dL Creatinine 0.62 (0.5-1.4) mg/dL Estim Creat Clear Calc 132.7 Estimated GFR > 60 Random Glucose 87 (60-115) mg/dL Lactic Acid 1.2 (0.5-2.0) mmol/L Calcium 9.0 D (8.4-10.2) mg/dL Total Bilirubin 0.5 (0.0-1.0) mg/dL AST 24 (5-37) U/L ALT 17 (0-40) U/L Alkaline Phosphatase 72 (39-117) U/L Total Protein 7.5 (6.5-8.0) g/dL Albumin 4.2 (3.5-5.0) g/dL COVID-19 (KEVIN) Negative (Negative) COVID-19 Clin Com See Note Influenza Type A (PEPE) Negative (Negative) Influenza Type B (PEEP) Negative (Negative) Influenza A & B Note See Note S. pyogenes GrpA PEPE Negative (Negative) Independent Interpretation I performed an independent interpretation of an: Plain X-Ray Interpretation: No focal infiltrate Radiology Impression Discussion of test interpretation with radiology: I have reviewed the radiologist's reading. Radiologist Impression: FINDINGS: Lungs are clear. Again seen is a small calcified granuloma in the left middle third lung zone. Heart size is within normal limits. XR/XR chest 2V IMPRESSION: No acute disease. Stable x-ray. Electronically signed by: Gabo Whitley MD 08/25/2025 03:19 PM EDT Discharge Plan Discharge Clinical Impression: Asthma exacerbation Patient Disposition: Left Against Medical Advice
[2025-08-25] MEDS: Albuterol Sulfate 5 MG, Albuterol/Iprat 2.5/0.5MG 3 ML 3 ML INHALE (14:22)
[2025-08-25 14:39] LABS: MANUAL DIFF FLAG NO
[2025-08-25 14:42] LABS: Venous Blood Gas Refer to POC result
--- NOTE | 2025-08-25 14:43 | PC.NURSE ---
65 M presents to ED with SOB, cough, spitting up sputum since this morning, hx asthma. Pt arrived hypoxic, placed on 4L NC and seen by respiratory for a breathing treatment. Lungs sounded tight but no audible wheezes, nebulizer running. A+Ox4, anxious, cooperative. Pt diaphoretic. IV Placed and pt breathing much better following breathing treatment. Pt appears more comfortable now, RR rate still a bit elevated but sts he can breath much better now.
[2025-08-25 14:44] LABS: Hematocrit 47.8 % (42.0-52.0); Hemoglobin 16.1 g/dl (14.0-18.0); Imm Gran Abs Auto 0.04 X10*3/uL (0.00-0.03); Imm Gran Pct Auto 0.5 % (0.0-0.4); Lymphocytes Absolute Auto 2.4 X10*3/uL (1.2-4.9); Mean Corpuscular HGB Conc 33.7 g/dl (31.0-36.0); Mean Corpuscular Hemoglobin 29.8 pg (27.0-33.0); Mean Corpuscular Volume 88.5 fL (80.0-98.0); NRBC Abs Auto 0.000 X10*3/uL (0.0-0.012); NRBC Pct Auto 0.0 /100WBC (0.0-0.2); Platelet Count 268 X10*3/uL (160-400); Red Blood Count 5.40 X10*6/uL (4.60-5.80); White Blood Count 7.6 X10*3/uL (4.8-10.8)
[2025-08-25 14:44] LABS: VBG HCO3 29 mmol/L (22-26); VBG O2 % Saturation 94.0 %
[2025-08-25 14:56] LABS: Alanine Aminotransferase 17 U/L (0-40); Albumin Level 4.2 g/dL (3.5-5.0); Alkaline Phosphatase 72 U/L (39-117); Anion Gap 11 (12-20); Aspartate Amino Transferase 24 U/L (5-37); Blood Urea Nitrogen 9 mg/dL (9-16); Calcium 9.0 mg/dL (8.4-10.2); Carbon Dioxide 30 mmol/L (22-29); Chloride 106 mmol/L (96-108); Creatinine Clr Calc Pharmacy 132.7; Estimated Glomerular Filt Rate > 60; Potassium 3.7 mmol/L (3.3-5.1); Sodium 143 mmol/L (135-145); Total Protein 7.5 g/dL (6.5-8.0)
[2025-08-25 15:05] LABS: COVID-19 Test Negative (Negative); IDNOW Serial# 55D5AD1C; IDNOW Serial# 58CA691E; Influenza B2 Negative (Negative)
--- NOTE | 2025-08-25 16:55 | ECG_ITS ---
Test Reason : SOB Blood Pressure : */* mmHG Vent. Rate : 75 BPM Atrial Rate : 75 BPM P-R Int : 158 ms QRS Dur : 150 ms QT Int : 424 ms P-R-T Axes : 51 -48 0 degrees QTcB Int : 473 ms Normal sinus rhythm Right bundle branch block Left anterior fascicular block Bifascicular block Abnormal ECG When compared with ECG of 01-Jan-2024 06:29, No significant change was found Referred By: René Garcia Electronically Signed By: Saulo Yu
[2025-08-25 17:06] LABS: IDNOW Serial# 55D5AD1C; Strep A Nucleic Acid Negative (Negative)
--- OUTSIDE RECORDS SUMMARY | 2025-08-25 17:36 | XMS_ITS | Clinical Summary ---
Author Organization [facility] Address [address] [place] [address] Care Team Providers Care Community Service Technician Name Role Phone Unavailable Primary Care Provider [...] 2010 Zoster Vaccines (1 of 2) 2010 Depression Screening 12/02/2024 COVID-19 Vaccine (1 - 2023-2 5 season) 2025 Influenza Vaccine (#1) 2025 RSV Immunization Adult Patie nts (1 [...]
--- NOTE | 2025-08-25 17:37 | P.HPHOSP_ITS ---
History of Present Illness Date of Service: 08/25/25 Chief Complaint: shortness of breath 65/m with opioid PMFSH Medical History Opiate dependence COPD (chronic obstructive pulmonary disease) High cholesterol HTN (hypertension) Asthma Family History Father Pancreatic cancer Social History Household Members: None Housing: Apartment Do you presently have visiting nurse or other home services: No Alcohol intake: current Alcohol intake frequency: 3 or more drinks per day Alcohol type: beer Patient Tobacco Use Status: Current everyday Tobacco user Tobacco use type: Cigarette Cigarette Packs Per Day: 1 Cigarettes Per Day: 20.0 Smoked in Last 30 Days: No Use of substances other than those prescribed or required for medical reasons: No Advance Directives: No Advance Directives Information Provided: Yes Do you have a plan to hurt others: No Plan Meds Allergies Allergy/AdvReac Type Severity Reaction Status Date / Time No Known Allergies Allergy Verified 08/25/25 14:08 Home Medications ?Medication ?Instructions ?Recorded ?Confirmed ?Last Taken ?Type atorvastatin 80 mg tablet 1 tab BEDTIME 06/21/2207/25 Unknown History docusate sodium 100 mg capsule 1 cap PO BID PRN Consti pation 06/21/22 07/25/23 Unknown History lisinopril 20 1 tab PO DAILY 06/21/2207/03 Unknown History mg-hydrochlorothiazide 25 mg tablet methadone 10 mg/mL oral concentrate 55 mg PO DAILY 07/25/23 Unknown History Physical Exam 2 Vital Signs and Narrative: Vital Signs: Last Vital Signs Temp 97.1 F 08/25/25 14:06 Pulse 84 08/25/25 16:20 Resp 18 08/25/25 16:20 BP 126/60 08/25/25 16:20 Pulse Ox 91 L 08/25/25 16:48 O2 Del Method Nasal Cannula 08/25/25 16:48 O2 Flow Rate 1 08/25/25 16:48 BMI result Body Mass Index 31.8 Results Labs 08/25/25 14:30 08/25/25 14:30 Labs: Laboratory Results - last 24 hr 08/25/25 08/25/25 08/25/25 14:30 14:40 16:50 MCV 88.5 MCH 29.8 MCHC 33.7 RDW 13.4 Plt Count 268 MPV 10.3 Immature Gran % (Auto) 0.5 H Neut % (Auto) 55.5 Lymph % (Auto) 32.1 [place] % (Auto) 7.4 Eos % (Auto) 3.7 Baso % (Auto) 0.8 Lymph # (Auto) 2.4 [place] # (Auto) 0.6 Eos # (Auto) 0.3 Baso # (Auto) 0.1 Abs Immat Gran (auto) 0.04 H Absolute Neuts (auto) 4.2 Absolute Nucleated RBC 0.000 Nucleated RBC % (auto) 0.0 VBG pH 7.32 VBG pCO2 56 VBG pO2 78 VBG HCO3 29 H VBG O2 Saturation 94.0 VBG Base Excess 2.2 Anion Gap 11 L Estim Creat Clear Calc 132.7 Estimated GFR > 60 Random Glucose 87 Lactic Acid 1.2 Calcium 9.0 D Total Bilirubin 0.5 AST 24 ALT 17 Alkaline Phosphatase 72 Total Protein 7.5 Albumin 4.2 COVID-19 ([facility]) Negative COVID-19 Clin Com See Note Influenza Type A (PEPE) Negative Influenza Type B (PEPE) Negative Influenza A & B Note See Note S. pyogenes GrpA PEPE Negative Imaging Radiologist's Impressions: Impressions Chest X-Ray 08/25/25 15:10 IMPRESSION: No acute disease. Stable x-ray. Electronically signed by: Gabo hWitley MD 08/25/2025 03:19 PM EDT Assessment and Plan (1) Asthma with exacerbation: Status: Acute (2) COPD (chronic obstructive pulmonary disease): Status: Acute Quality Stroke Does the patient have a stroke diagnosis?: No VTE Prior VTE?: No VTE Risk Level:: Medical - moderate - high VTE Device Contraindication: Treatment Not Indicated VTE Drug Contraindication: N/A - Med Ordered
--- NOTE | 2025-08-25 17:38 | PC.NURSE ---
Pt o2 sat has been low, attempted to ween off o2 but pt dropped to 88 on RA. Pt does have COPD. Pt now on 2L NC.
--- NOTE | 2025-08-25 18:18 | PHA.MEDREC ---
Addendum entered by Grant Looney RPh 08/25/25 18:38: Reviewed by [facility]. Original Note: Pharmacy Consult ? Medication Reconciliation Pharmacy has completed the medication reconciliation. Spoke with pt and he was able to confirm he does not know what he takes for medications at this time (pt not sure the last dose of his methadone), I asked about family and pt said he has a sister but she would not know what he takes for medications as pt lives alone; I utilized claims for confirm pt med rec. Pt unsure the last time he took his medications.
== END 2025-08-25 19:01 | disposition left against medical advice (07) ==
LOC: HO.ED 16:56 → HO.EDOVER 17:55 → HO.ED 18:34
PROVIDERS: Physician Assistant; Registered Nurse Emergency; Emergency Provider Student in an Organized Health Care Education/Training Program; PCP Internal Medicine
DX: J45.901 Unspecified asthma with (acute) exacerbation (principal); I10 Essential (primary) hypertension; Z53.29 Procedure and treatment not carried out because of patient's decision for other reasons
CPT/HCPCS: 36415; 71046; 80053; 82803; 83605; 85025; 87040; 87502; 87635; 87651; 93005; 94640; 99285; J3475

== ENCOUNTER → 2025-08-25 14:10 | Outpatient (BNV) | payer MEDICARE, SELFPAY | PROVIDERS: PCP Internal Medicine; Visit Provider Radiology Diagnostic Radiology | DX: R05.3 Chronic cough (principal) | CPT/HCPCS: 71046 ==

== ENCOUNTER → 2025-08-25 15:05 | Outpatient (BNV) | payer MEDICARE, SELFPAY | PROVIDERS: Emergency Provider Student in an Organized Health Care Education/Training Program; PCP Internal Medicine; Visit Provider Internal Medicine | DX: J45.901 Unspecified asthma with (acute) exacerbation (principal); J44.9 Chronic obstructive pulmonary disease, unspecified | CPT/HCPCS: 99284 ==

== ENCOUNTER → 2025-08-25 16:55 | Outpatient (BNV) | payer MEDICARE, SELFPAY | PROVIDERS: Emergency Provider Student in an Organized Health Care Education/Training Program; PCP Internal Medicine; Visit Provider Internal Medicine Cardiovascular Disease | DX: I45.2 Bifascicular block (principal) | CPT/HCPCS: 93010 ==